=== PATIENT | male | born 1960 | race African-American/Black ===

== ENCOUNTER 2017-02-24 11:12 | Emergency (ER) | payer OTHER, MEDICAID ==
[~2017-02-24] VITALS: Ht 185.4 cm; Wt 99.8 kg
[2017-02-24 11:32] VITALS: BP 163/113
[2017-02-24] MEDS ORDERED: TETANUS-DIPTH-ACEL PERTUSSIS 0.5ML SYRG IM ONE (12:30)
[2017-02-24] MEDS ORDERED: cefTRIAXone SOD 1,000 MG VL IM ONE (12:30)
== END 2017-02-24 12:48 | disposition home or self-care (01) ==
LOC: ER 11:12
DX: L03.114 Cellulitis of left upper limb (principal); S50.862A Insect bite (nonvenomous) of left forearm, initial encounter; Z23 Encounter for immunization; W57.XXXA Bitten or stung by nonvenomous insect and other nonvenomous arthropods, initial encounter; Y93.89 Activity, other specified; Y99.8 Other external cause status; Y92.096 Garden or yard of other non-institutional residence as the place of occurrence of the external cause; Z95.1 Presence of aortocoronary bypass graft; Z21 Asymptomatic human immunodeficiency virus [HIV] infection status
CPT/HCPCS: 90471; 90715; 96372; 99284; J0696

== ENCOUNTER 2017-02-26 06:15 | Emergency (ER) | payer OTHER, MEDICAID ==
[~2017-02-26] VITALS: Ht 160 cm; Wt 99.8 kg
[2017-02-26 07:00] VITALS: BP 148/102
== END 2017-02-26 07:19 | disposition left against medical advice (07) ==
LOC: ER 06:29
DX: S40.862A Insect bite (nonvenomous) of left upper arm, initial encounter (principal); Z53.21 Procedure and treatment not carried out due to patient leaving prior to being seen by health care provider; W57.XXXA Bitten or stung by nonvenomous insect and other nonvenomous arthropods, initial encounter; Y93.89 Activity, other specified; Y99.8 Other external cause status; Y92.89 Other specified places as the place of occurrence of the external cause

== ENCOUNTER → 2020-07-23 | Day surgery (SDC) | payer OTHER, MEDICAID ==
[2020-07-17 12:33] LABS: Basophils # (auto) 0.1 10 ^3/uL (0-0.2); Eosinophils # (auto) 0.1 10 ^3/uL (0-0.8); Red Blood Cells 3.81 10^6/uL (4.5-5.90)
[2020-07-17 12:35] LABS: Eosinophils % (auto) 1.4 % (0.0-7.0); Hematocrit 37.7 % (41.0-53.0); Hemoglobin 13.4 g/dL (13.5-17.5); Lymphocytes % (auto) 36.8 % (10.0-50.0); Mean Corpuscular Hemoglobin 35.1 pg (28.0-32.0); Mean Corpuscular Hgb Conc. 35.4 g/dL (32.0-36.0); Mean Corpuscular Volume 99.1 fL (80.0-100.0); Monocytes # (auto) 0.8 10 ^3/uL (0-1.3); Monocytes % (auto) 7.3 % (0.0-12.0); Neutrophils # (auto) 5.8 10 ^3/uL (1.6-8.6); Neutrophils % (auto) 53.5 % (37.0-80.0); Red Cell Distribution Width 13.2 % (11.8-14.3); White Blood Cell 10.9 10^3/uL (4.4-10.8)
[2020-07-17 12:48] LABS: Platelet Count (auto) 122 10^3/uL (140-450)
[2020-07-17 12:50] LABS: INR 1.05 (0.9-1.15); Partial Thromboplastin Time 28.3 sec (23.0-31.2)
[2020-07-17 13:08] LABS: Albumin 3.5 g/dL (3.4-5.0); Potassium 3.6 mmol/L (3.5-5.1)
[2020-07-17 13:12] LABS: BUN/Creatinine Ratio 9.2; Bilirubin, Total 0.2 mg/dL (0.2-1.0); Total Protein 7.8 g/dL (6.4-8.2)
[2020-07-18 10:52] LABS: Urine Bacteria NONE SEEN /hpf (None Seen); Urine Blood Negative /uL (Negative); Urine Mucus FEW (None Seen); Urine Specific Gravity 1.011 (1.001-1.035); Urine WBC <1 /hpf (0 - 3)
[~2020-07-23] VITALS: Ht 182.9 cm; Wt 104.3 kg
[~2020-07-23] MED LIST: ABAC1TAB3 PO; ATOR10TA52 PO; BACL10TA PO; BUME1TAB3 PO; CALC-317 PO; CHLO25TA22 PO; CIPROFLOXACIN 400MG/200ML 200 ML IV ONE; DEXL60CA4 PO; DIPH25CA46 PO; DOCU100T15 PO; FERR-20 PO; FOLI1TAB6 PO; GABA300C10 PO; GENTAMICIN SULF 80 MG/2 ML VIAL ONE; HYDROmorphone HCL 2 MG/ML VL IV PRN; LIDOCAINE 1% HCL (LOCAL ANESTH.) INJ 20ML MDV ONE; METO25TA93 PO; MIDAZOLAM HCL 1MG/1ML-2 ML VIAL ONE; MORPHINE SULFATE 4 MG/ML SYR/VIAL IV PRN; NALO1TAB2 PO; NIFE1TAB31 PO; ONDANSETRON HCL 4 MG/2 ML VIAL IV PRN; ONDANSETRON HCL 4 MG/2 ML VIAL ONE; PROPOFOL 10 MG/ML 20 ML IV ONE; SODIUM CHLORIDE LOCK 10 ML ONE; SPIR25TA8 PO; TELM80TA PO; fentaNYL CITRATE 100 MCG/2 ML VL ONE
[2020-07-23 09:10] VITALS: BP 98/65
== END | disposition home or self-care (01) ==
LOC: SUR 06:09
PROVIDERS: ATTEND Urology
DX: R97.20 Elevated prostate specific antigen [PSA] (principal); C61 Malignant neoplasm of prostate; N40.1 Benign prostatic hyperplasia with lower urinary tract symptoms; K44.9 Diaphragmatic hernia without obstruction or gangrene; K21.9 Gastro-esophageal reflux disease without esophagitis; E11.40 Type 2 diabetes mellitus with diabetic neuropathy, unspecified; E11.22 Type 2 diabetes mellitus with diabetic chronic kidney disease; I13.0 Hypertensive heart and chronic kidney disease with heart failure and stage 1 through stage 4 chronic kidney disease, or unspecified chronic kidney disease; N18.30 Chronic kidney disease, stage 3 unspecified; G89.29 Other chronic pain; F17.200 Nicotine dependence, unspecified, uncomplicated; J44.9 Chronic obstructive pulmonary disease, unspecified; Z20.828 Contact with and (suspected) exposure to other viral communicable diseases; Z98.890 Other specified postprocedural states; Z21 Asymptomatic human immunodeficiency virus [HIV] infection status; Z91.041 Radiographic dye allergy status; Z86.73 Personal history of transient ischemic attack (TIA), and cerebral infarction without residual deficits
CPT/HCPCS: 36415; 52000; 55700; 76872; 80053; 81001; 85025; 85610; 85730; 88305; J0744; J1580; J2001; J2250; J2405; J2704; J3010; U0003

== ENCOUNTER 2022-10-31 14:13 | Emergency (ER) | payer OTHER, MEDICAID ==
[~2022-10-31] VITALS: Ht 185.4 cm; Wt 104.3 kg
[~2022-10-31 14:13] MED LIST changes: +CHLO25TA2 PO; -CHLO25TA22 PO; -CIPROFLOXACIN 400MG/200ML 200 ML IV ONE; +DIPH-599 PO; -DIPH25CA46 PO; -GENTAMICIN SULF 80 MG/2 ML VIAL ONE; -HYDROmorphone HCL 2 MG/ML VL IV PRN; -LIDOCAINE 1% HCL (LOCAL ANESTH.) INJ 20ML MDV ONE; -MIDAZOLAM HCL 1MG/1ML-2 ML VIAL ONE; -MORPHINE SULFATE 4 MG/ML SYR/VIAL IV PRN; -NALO1TAB2 PO; +NALO1TAB4 PO; -ONDANSETRON HCL 4 MG/2 ML VIAL IV PRN; -ONDANSETRON HCL 4 MG/2 ML VIAL ONE; -PROPOFOL 10 MG/ML 20 ML IV ONE; -SODIUM CHLORIDE LOCK 10 ML ONE; -fentaNYL CITRATE 100 MCG/2 ML VL ONE
[2022-10-31 14:20] VITALS: BP 140/98
[2022-10-31] MEDS ORDERED: ASPirin 325 MG TAB PO ONE (14:30)
[2022-10-31 14:45] LABS: Basophils # (auto) 0.1 10 ^3/uL (0-0.2); Basophils % (auto) 1.2 % (0.0-2.0); Eosinophils # (auto) 0.2 10 ^3/uL (0-0.8); Eosinophils % (auto) 2.3 % (0.0-7.0); Hematocrit 39.1 % (41.0-53.0); Hemoglobin 13.8 g/dL (13.5-17.5); Lymphocytes # (auto) 1.5 10 ^3/uL (0.4-5.4); Lymphocytes % (auto) 16.6 % (10.0-50.0); Mean Corpuscular Hemoglobin 33.8 pg (28.0-32.0); Mean Corpuscular Hgb Conc. 35.4 g/dL (32.0-36.0); Mean Corpuscular Volume 95.5 fL (80.0-100.0); Monocytes # (auto) 0.9 10 ^3/uL (0-1.3); Monocytes % (auto) 9.9 % (0.0-12.0); Neutrophils # (auto) 6.4 10 ^3/uL (1.6-8.6); Red Blood Cells 4.09 10^6/uL (4.5-5.90); White Blood Cell 9.2 10^3/uL (4.4-10.8)
[2022-10-31 15:04] LABS: Albumin 3.6 g/dL (3.4-5.0); Calcium 9.2 mg/dL (8.5-10.1); Potassium 3.2 mmol/L (3.5-5.1)
[2022-10-31 15:06] LABS: BUN/Creatinine Ratio 7.8
[2022-10-31 15:09] LABS: Bilirubin, Total 0.4 mg/dL (0.2-1.0); Total Protein 7.2 g/dL (6.4-8.2)
[2022-10-31 16:00] LABS: Urine WBC None Seen /hpf (0 - 3)
[2022-10-31 16:16] LABS: Urine Bacteria NONE SEEN /hpf (None Seen); Urine Blood TRACE /uL (Negative); Urine Specific Gravity 1.007 (1.001-1.035)
[2022-11-01] MEDS ORDERED: METO-289 PO (18:46)
== END 2022-10-31 17:20 | disposition left against medical advice (07) ==
LOC: ER 14:13
DX: I24.9 Acute ischemic heart disease, unspecified (principal)
CPT/HCPCS: 36415; 71045; 80053; 81001; 84484; 85025; 93005

== ENCOUNTER 2022-11-01 13:45 | Inpatient (IN) | payer OTHER, MEDICAID ==
[~2022-11-01] VITALS: Ht 185.4 cm; Wt 111.3 kg
[2022-11-01 14:39] LABS: Basophils # (auto) 0.1 10 ^3/uL (0-0.2); Basophils % (auto) 0.7 % (0.0-2.0); Eosinophils # (auto) 0.4 10 ^3/uL (0-0.8); Eosinophils % (auto) 4.2 % (0.0-7.0); Hematocrit 40.7 % (41.0-53.0); Hemoglobin 14.1 g/dL (13.5-17.5); Lymphocytes # (auto) 1.2 10 ^3/uL (0.4-5.4); Lymphocytes % (auto) 13.5 % (10.0-50.0); Mean Corpuscular Hemoglobin 32.9 pg (28.0-32.0); Mean Corpuscular Hgb Conc. 34.7 g/dL (32.0-36.0); Mean Corpuscular Volume 94.8 fL (80.0-100.0); Monocytes # (auto) 0.9 10 ^3/uL (0-1.3); Monocytes % (auto) 9.4 % (0.0-12.0); Neutrophils # (auto) 6.5 10 ^3/uL (1.6-8.6); Neutrophils % (auto) 72.2 % (37.0-80.0); Nucleated Red Blood Cells % 0.2 %; Red Blood Cells 4.29 10^6/uL (4.5-5.90); Red Cell Distribution Width 14.4 % (11.8-14.3)
[2022-11-01 14:42] LABS: Albumin 3.9 g/dL (3.4-5.0); Calcium 9.1 mg/dL (8.5-10.1); Potassium 3.4 mmol/L (3.5-5.1)
[2022-11-01 14:46] LABS: BUN/Creatinine Ratio 6.9; Bilirubin, Total 0.5 mg/dL (0.2-1.0); Total Protein 7.7 g/dL (6.4-8.2)
[2022-11-01] MEDS ORDERED: FUROSEMIDE 40 MG/4 ML VIAL IV ONE (17:00)
[2022-11-01] MEDS ORDERED: ONDANSETRON HCL 4 MG/2 ML VIAL IV PRN (18:30)
[2022-11-01] MEDS ORDERED: MORPHINE SULFATE INJ 2 MG/ml SYRG IV PRN (18:30)
[2022-11-01] MEDS ORDERED: NITROGLYCERIN 0.4 MG SL TAB SL PRN (18:30)
[2022-11-01] MEDS ORDERED: ACETAMINOPHEN 325 MG TAB PO PRN (18:30)
[2022-11-01] MEDS ORDERED: METO-289 PO (18:46)
[2022-11-01 19:00] VITALS: BP 140/102
[2022-11-01] MEDS ORDERED: POTASSIUM CHL 20 Meq TABLET PO ONE (19:30)
[2022-11-01] MEDS: SODIUM CHLOR 0.9% PF (SALINE LOCK) 10ML VIAL/SYR IV SCH (22:00)
[2022-11-01] MEDS ORDERED: PATIENTS OWN MEDICATION (Docusate Sodium 100 MG) PO SCH (22:00)
[2022-11-01] MEDS: GABAPENTIN 300 MG CAP PO SCH (23:12)
[2022-11-02] MEDS ORDERED: hydrALAZINE HCL 20 MG/ML VL IV ONE (01:30)
[2022-11-02] MEDS: IPRATROPIUM BROM 0.5 MG/2.5ML INH SOL NEB PRN ×2 (02:08→22:24)
[2022-11-02] MEDS: ALBUTEROL MEDNEB 2.5 mg/3ml NEB NEB PRN ×2 (02:08→22:24)
[2022-11-02 05:18] LABS: Basophils # (auto) 0.1 10 ^3/uL (0-0.2); Basophils % (auto) 1.2 % (0.0-2.0); Eosinophils # (auto) 0.3 10 ^3/uL (0-0.8); Eosinophils % (auto) 2.7 % (0.0-7.0); Hematocrit 40.2 % (41.0-53.0); Hemoglobin 14.1 g/dL (13.5-17.5); Lymphocytes # (auto) 1.3 10 ^3/uL (0.4-5.4); Lymphocytes % (auto) 13.6 % (10.0-50.0); Mean Corpuscular Hemoglobin 33.5 pg (28.0-32.0); Mean Corpuscular Hgb Conc. 35.1 g/dL (32.0-36.0); Mean Corpuscular Volume 95.6 fL (80.0-100.0); Monocytes # (auto) 1.2 10 ^3/uL (0-1.3); Monocytes % (auto) 12.1 % (0.0-12.0); Neutrophils # (auto) 6.8 10 ^3/uL (1.6-8.6); Neutrophils % (auto) 70.4 % (37.0-80.0); Nucleated Red Blood Cells % 0.1 %; Red Blood Cells 4.21 10^6/uL (4.5-5.90); Red Cell Distribution Width 14.2 % (11.8-14.3); White Blood Cell 9.6 10^3/uL (4.4-10.8)
[2022-11-02 05:39] LABS: Calcium 9.3 mg/dL (8.5-10.1); Potassium 3.9 mmol/L (3.5-5.1)
[2022-11-02] MEDS: GABAPENTIN 300 MG CAP PO SCH ×3 (05:41→21:37)
[2022-11-02] MEDS: SODIUM CHLOR 0.9% PF (SALINE LOCK) 10ML VIAL/SYR IV SCH ×3 (05:41→21:37)
[2022-11-02 05:46] LABS: BUN/Creatinine Ratio 9.4; Total Protein 7.9 g/dL (6.4-8.2)
[2022-11-02] MEDS: FERROUS SULFATE 325mg EC TAB PO SCH ×3 (08:55→19:02)
[2022-11-02] MEDS: Chlorthalidone 25 MG PO SCH (09:35)
[2022-11-02] MEDS: ABACAVIR DOLUTEGRAVIR LAMIVUDI PO SCH (09:35)
[2022-11-02] MEDS: AZITHROMYCIN 500MG/ 250ML 250 ML IV SCH (09:35)
[2022-11-02] MEDS: LOSARTAN POTASSIUM 50 MG TAB PO SCH (09:38)
[2022-11-02] MEDS: ATORVASTATIN 20 MG TAB PO SCH (09:39)
[2022-11-02] MEDS: BUMETANIDE 1 MG TAB PO SCH (09:39)
[2022-11-02] MEDS: METOPROLOL SUCCINATE XL 50 MG TAB PO SCH (09:39)
[2022-11-02] MEDS ORDERED: PANTOPRAZOLE 40 MG/10 ML VIAL INJ IV SCH (10:00)
[2022-11-02 10:46] LABS: Urine Bacteria NONE SEEN /hpf (None Seen); Urine Blood 2+ /uL (Negative); Urine Mucus MODERATE (None Seen); Urine Specific Gravity 1.035 (1.001-1.035); Urine WBC 1 /hpf (0 - 3)
[2022-11-02 13:21] VITALS: BP 115/81
[2022-11-02 14:49] LABS: INR 1.04 (0.9-1.15); Partial Thromboplastin Time 34.2 sec (24.6-33.4)
[2022-11-02] MEDS ORDERED: cefTRIAXone 1GM/50ML D5W 50 ML IV ONE (17:45)
[2022-11-02] MEDS ORDERED: IOHEXOL 350 MG/ML 100ML IJ ONE (18:03)
[2022-11-02] MEDS: DOCUSATE SOD 100 MG CAP PO PRN (21:37)
[2022-11-02] MEDS: HYDROcodone-ACET 5/325MG TAB PO PRN (21:38)
[2022-11-02 22:00] VITALS: BP_SYST 132; BP_DIAS 132; BP_DIAS 84
[2022-11-03] MEDS: SODIUM CHLOR 0.9% PF (SALINE LOCK) 10ML VIAL/SYR IV SCH ×3 (04:57→22:00)
[2022-11-03] MEDS: GABAPENTIN 300 MG CAP PO SCH ×3 (04:57→21:33)
[2022-11-03 05:00] VITALS: BP 112/72
[2022-11-03] MEDS: HYDROcodone-ACET 5/325MG TAB PO PRN ×2 (05:01→21:33)
[2022-11-03] MEDS: FERROUS SULFATE 325mg EC TAB PO SCH ×3 (08:43→18:00)
[2022-11-03] MEDS: cefTRIAXone 1GM/50ML D5W 50 ML IV SCH (08:44)
[2022-11-03 09:26] VITALS: BP 102/62
[2022-11-03] MEDS: ABACAVIR DOLUTEGRAVIR LAMIVUDI PO SCH (10:00)
[2022-11-03] MEDS: Chlorthalidone 25 MG PO SCH (10:00)
[2022-11-03] MEDS ORDERED: predniSONE 20 MG TAB PO ONE ×3 (10:15→22:15)
[2022-11-03] MEDS: ATORVASTATIN 20 MG TAB PO SCH (11:46)
[2022-11-03] MEDS: BUMETANIDE 1 MG TAB PO SCH (11:46)
[2022-11-03] MEDS: METOPROLOL SUCCINATE XL 50 MG TAB PO SCH (11:47)
[2022-11-03] MEDS: LOSARTAN POTASSIUM 50 MG TAB PO SCH (11:47)
[2022-11-03] MEDS: AZITHROMYCIN 500MG/ 250ML 250 ML IV SCH (11:49)
[2022-11-03 13:00] VITALS: BP 133/77
[2022-11-03 16:37] VITALS: BP 117/85
[2022-11-03 20:00] VITALS: BP 118/70
[2022-11-03 22:00] VITALS: BP 118/70
[2022-11-03] MEDS ORDERED: diphenhdrAMINE HCL 25 MG CAP PO ONE (22:15)
[2022-11-04 05:00] VITALS: BP 127/79
[2022-11-04] MEDS: GABAPENTIN 300 MG CAP PO SCH ×3 (05:08→21:30)
[2022-11-04] MEDS: SODIUM CHLOR 0.9% PF (SALINE LOCK) 10ML VIAL/SYR IV SCH ×3 (05:09→21:30)
[2022-11-04 08:30] VITALS: BP 129/90
[2022-11-04] MEDS: METOPROLOL SUCCINATE XL 50 MG TAB PO SCH (10:10)
[2022-11-04] MEDS: AZITHROMYCIN 250 MG TAB PO SCH (10:10)
[2022-11-04] MEDS: LOSARTAN POTASSIUM 50 MG TAB PO SCH (10:11)
[2022-11-04] MEDS: BUMETANIDE 1 MG TAB PO SCH (10:12)
[2022-11-04] MEDS: FERROUS SULFATE 325mg EC TAB PO SCH ×3 (10:12→17:29)
[2022-11-04] MEDS: cefTRIAXone 1GM/50ML D5W 50 ML IV SCH (10:13)
[2022-11-04] MEDS: ATORVASTATIN 20 MG TAB PO SCH (10:13)
[2022-11-04] MEDS: Chlorthalidone 25 MG PO SCH (11:03)
[2022-11-04] MEDS: ABACAVIR DOLUTEGRAVIR LAMIVUDI PO SCH (11:03)
[2022-11-04] MEDS ORDERED: IOHEXOL 350 MG/ML 100ML IJ ONE (11:55)
[2022-11-04 12:30] VITALS: BP 126/79
[2022-11-04] MEDS: DOCUSATE SOD 100 MG CAP PO PRN (15:07)
[2022-11-04] MEDS: POLYETHYLENE GLYCOL 17 GM PWDR PO SCH ×2 (17:28→21:30)
[2022-11-04] MEDS: IPRATROPIUM BROM 0.5 MG/2.5ML INH SOL NEB PRN ×2 (18:38→21:37)
[2022-11-04] MEDS: ALBUTEROL MEDNEB 2.5 mg/3ml NEB NEB PRN ×2 (18:38→21:37)
[2022-11-04] MEDS: DOCUSATE SOD 100 MG CAP PO SCH (21:30)
[2022-11-04 22:00] VITALS: BP 118/80
[2022-11-05 00:12] VITALS: BP 118/80
[2022-11-05 05:00] VITALS: BP 118/72
[2022-11-05] MEDS: SODIUM CHLOR 0.9% PF (SALINE LOCK) 10ML VIAL/SYR IV SCH ×3 (06:00→21:39)
[2022-11-05] MEDS ORDERED: ALBUTEROL MEDNEB 2.5 mg/3ml NEB ONE ×5 (06:06→21:28)
[2022-11-05] MEDS: GABAPENTIN 300 MG CAP PO SCH ×3 (06:14→21:38)
[2022-11-05] MEDS: IPRATROPIUM BROM 0.5 MG/2.5ML INH SOL NEB SCH ×5 (06:55→21:33)
[2022-11-05] MEDS: ALBUTEROL SULF 2.5 MG/0.5ML(0.5%) NEB SOLN NEB SCH ×5 (06:55→21:33)
[2022-11-05 09:00] VITALS: BP 117/79
[2022-11-05] MEDS: POLYETHYLENE GLYCOL 17 GM PWDR PO SCH ×2 (09:30→21:39)
[2022-11-05] MEDS: cefTRIAXone 1GM/50ML D5W 50 ML IV SCH (09:30)
[2022-11-05] MEDS: AZITHROMYCIN 250 MG TAB PO SCH ×2 (09:30→12:11)
[2022-11-05] MEDS: DOCUSATE SOD 100 MG CAP PO SCH ×2 (09:31→21:38)
[2022-11-05] MEDS: LOSARTAN POTASSIUM 50 MG TAB PO SCH (09:31)
[2022-11-05] MEDS: ATORVASTATIN 20 MG TAB PO SCH (09:32)
[2022-11-05] MEDS: FERROUS SULFATE 325mg EC TAB PO SCH ×3 (09:32→18:16)
[2022-11-05] MEDS: METOPROLOL SUCCINATE XL 50 MG TAB PO SCH (09:32)
[2022-11-05] MEDS: BUMETANIDE 1 MG TAB PO SCH (09:32)
[2022-11-05] MEDS: Chlorthalidone 25 MG PO SCH (10:00)
[2022-11-05 13:00] VITALS: BP 111/69
[2022-11-05 13:36] LABS: Basophils # (auto) 0.1 10 ^3/uL (0-0.2); Basophils % (auto) 0.7 % (0.0-2.0); Eosinophils # (auto) 0.1 10 ^3/uL (0-0.8); Eosinophils % (auto) 0.8 % (0.0-7.0); Hematocrit 40.2 % (41.0-53.0); Hemoglobin 13.9 g/dL (13.5-17.5); Lymphocytes # (auto) 2.7 10 ^3/uL (0.4-5.4); Lymphocytes % (auto) 24.8 % (10.0-50.0); Mean Corpuscular Hemoglobin 33.1 pg (28.0-32.0); Mean Corpuscular Hgb Conc. 34.5 g/dL (32.0-36.0); Mean Corpuscular Volume 95.9 fL (80.0-100.0); Monocytes % (auto) 9.5 % (0.0-12.0); Neutrophils # (auto) 7.1 10 ^3/uL (1.6-8.6); Neutrophils % (auto) 64.2 % (37.0-80.0); Red Blood Cells 4.19 10^6/uL (4.5-5.90); Red Cell Distribution Width 13.8 % (11.8-14.3)
[2022-11-05 13:41] LABS: Albumin 3.6 g/dL (3.4-5.0); Calcium 9.3 mg/dL (8.5-10.1); Potassium 3.2 mmol/L (3.5-5.1)
[2022-11-05 13:44] LABS: BUN/Creatinine Ratio 18.9; Bilirubin, Total 0.3 mg/dL (0.2-1.0); Total Protein 8.2 g/dL (6.4-8.2)
[2022-11-05] MEDS ORDERED: POTASSIUM CHL 20MEQ/100ML 100 ML IV ONE ×2 (14:45→19:00)
[2022-11-05 17:00] VITALS: BP 112/76
[2022-11-05] MEDS: ABACAVIR DOLUTEGRAVIR LAMIVUDI PO SCH (18:19)
[2022-11-05 22:00] VITALS: BP 114/59
[2022-11-06] MEDS ORDERED: ALBUTEROL MEDNEB 2.5 mg/3ml NEB ONE ×5 (01:55→21:48)
[2022-11-06] MEDS: IPRATROPIUM BROM 0.5 MG/2.5ML INH SOL NEB SCH ×6 (02:01→22:00)
[2022-11-06] MEDS: ALBUTEROL SULF 2.5 MG/0.5ML(0.5%) NEB SOLN NEB SCH ×6 (02:01→22:00)
[2022-11-06 05:00] VITALS: BP 123/77
[2022-11-06] MEDS: FLUCONAZOLE 200MG/100ML 100 ML IV SCH ×3 (05:03→13:54)
[2022-11-06] MEDS: SODIUM CHLOR 0.9% PF (SALINE LOCK) 10ML VIAL/SYR IV SCH ×3 (06:00→21:14)
[2022-11-06] MEDS ORDERED: FLUCONAZOLE 200MG/100ML 100 ML IV ONE (06:30)
[2022-11-06] MEDS: GABAPENTIN 300 MG CAP PO SCH ×3 (06:46→21:13)
[2022-11-06 07:56] LABS: Basophils # (auto) 0.1 10 ^3/uL (0-0.2); Basophils % (auto) 0.9 % (0.0-2.0); Eosinophils # (auto) 0.1 10 ^3/uL (0-0.8); Eosinophils % (auto) 1.2 % (0.0-7.0); Hematocrit 36.1 % (41.0-53.0); Hemoglobin 12.7 g/dL (13.5-17.5); Lymphocytes # (auto) 2.2 10 ^3/uL (0.4-5.4); Lymphocytes % (auto) 30.6 % (10.0-50.0); Mean Corpuscular Hemoglobin 33.6 pg (28.0-32.0); Mean Corpuscular Hgb Conc. 35.2 g/dL (32.0-36.0); Mean Corpuscular Volume 95.6 fL (80.0-100.0); Monocytes % (auto) 13.4 % (0.0-12.0); Neutrophils % (auto) 53.9 % (37.0-80.0); Nucleated Red Blood Cells % 0.1 %; Red Blood Cells 3.77 10^6/uL (4.5-5.90); Red Cell Distribution Width 13.9 % (11.8-14.3); White Blood Cell 7.3 10^3/uL (4.4-10.8)
[2022-11-06] MEDS: FERROUS SULFATE 325mg EC TAB PO SCH ×3 (08:35→18:15)
[2022-11-06 08:46] LABS: Albumin 3.1 g/dL (3.4-5.0); Calcium 8.7 mg/dL (8.5-10.1); Potassium 3.7 mmol/L (3.5-5.1)
[2022-11-06 08:49] LABS: BUN/Creatinine Ratio 14.5; Bilirubin, Total 0.3 mg/dL (0.2-1.0); Total Protein 6.5 g/dL (6.4-8.2)
[2022-11-06 09:00] VITALS: BP 122/88
[2022-11-06] MEDS: DOCUSATE SOD 100 MG CAP PO SCH ×2 (10:44→21:13)
[2022-11-06] MEDS: BUMETANIDE 1 MG TAB PO SCH (10:44)
[2022-11-06] MEDS: cefTRIAXone 1GM/50ML D5W 50 ML IV SCH (10:44)
[2022-11-06] MEDS: DOXYCYCLINE 100 MG TAB/CAP PO SCH ×2 (10:45→21:13)
[2022-11-06] MEDS: POLYETHYLENE GLYCOL 17 GM PWDR PO SCH ×2 (10:45→21:13)
[2022-11-06] MEDS: ATORVASTATIN 20 MG TAB PO SCH (10:45)
[2022-11-06] MEDS: METOPROLOL SUCCINATE XL 50 MG TAB PO SCH (10:45)
[2022-11-06] MEDS: LOSARTAN POTASSIUM 50 MG TAB PO SCH (10:45)
[2022-11-06] MEDS: Chlorthalidone 25 MG PO SCH (10:47)
[2022-11-06 13:00] VITALS: BP 117/79
[2022-11-06 17:00] VITALS: BP 132/86
[2022-11-06] MEDS: ABACAVIR DOLUTEGRAVIR LAMIVUDI PO SCH (18:14)
[2022-11-06 22:00] VITALS: BP 134/80
[2022-11-07] MEDS ORDERED: ALBUTEROL MEDNEB 2.5 mg/3ml NEB ONE ×3 (01:06→10:11)
[2022-11-07] MEDS: IPRATROPIUM BROM 0.5 MG/2.5ML INH SOL NEB SCH ×4 (01:26→14:40)
[2022-11-07] MEDS: ALBUTEROL SULF 2.5 MG/0.5ML(0.5%) NEB SOLN NEB SCH ×4 (01:26→14:41)
[2022-11-07 05:00] VITALS: BP 141/95
[2022-11-07] MEDS: GABAPENTIN 300 MG CAP PO SCH ×2 (05:13→15:00)
[2022-11-07] MEDS: SODIUM CHLOR 0.9% PF (SALINE LOCK) 10ML VIAL/SYR IV SCH ×2 (05:14→14:58)
[2022-11-07 06:13] LABS: Basophils # (auto) 0.1 10 ^3/uL (0-0.2); Basophils % (auto) 0.8 % (0.0-2.0); Eosinophils # (auto) 0.2 10 ^3/uL (0-0.8); Eosinophils % (auto) 1.9 % (0.0-7.0); Hematocrit 35.4 % (41.0-53.0); Hemoglobin 12.3 g/dL (13.5-17.5); Lymphocytes # (auto) 2.2 10 ^3/uL (0.4-5.4); Lymphocytes % (auto) 27.2 % (10.0-50.0); Mean Corpuscular Hemoglobin 33.3 pg (28.0-32.0); Mean Corpuscular Hgb Conc. 34.9 g/dL (32.0-36.0); Mean Corpuscular Volume 95.5 fL (80.0-100.0); Monocytes # (auto) 0.9 10 ^3/uL (0-1.3); Monocytes % (auto) 10.7 % (0.0-12.0); Neutrophils # (auto) 4.8 10 ^3/uL (1.6-8.6); Neutrophils % (auto) 59.4 % (37.0-80.0); Nucleated Red Blood Cells % 0.1 %; Red Blood Cells 3.71 10^6/uL (4.5-5.90); Red Cell Distribution Width 13.8 % (11.8-14.3); White Blood Cell 8.1 10^3/uL (4.4-10.8)
[2022-11-07 06:19] LABS: Potassium 3.7 mmol/L (3.5-5.1)
[2022-11-07 06:32] LABS: Albumin 3.2 g/dL (3.4-5.0); BUN/Creatinine Ratio 13.7; Bilirubin, Total 0.3 mg/dL (0.2-1.0); Total Protein 6.6 g/dL (6.4-8.2)
[2022-11-07 09:07] VITALS: BP 150/81
[2022-11-07] MEDS: LOSARTAN POTASSIUM 50 MG TAB PO SCH (09:13)
[2022-11-07] MEDS ORDERED: POTASSIUM CHL 20 Meq TABLET PO ONE (09:15)
[2022-11-07] MEDS: DOXYCYCLINE 100 MG TAB/CAP PO SCH (09:16)
[2022-11-07] MEDS: BUMETANIDE 1 MG TAB PO SCH (09:16)
[2022-11-07] MEDS: DOCUSATE SOD 100 MG CAP PO SCH (09:16)
[2022-11-07] MEDS: ATORVASTATIN 20 MG TAB PO SCH (09:20)
[2022-11-07] MEDS: METOPROLOL SUCCINATE XL 50 MG TAB PO SCH (09:20)
[2022-11-07] MEDS: cefTRIAXone 1GM/50ML D5W 50 ML IV SCH (09:21)
[2022-11-07] MEDS: POLYETHYLENE GLYCOL 17 GM PWDR PO SCH (09:21)
[2022-11-07] MEDS: FLUCONAZOLE 200MG/100ML 100 ML IV SCH ×2 (09:21→11:47)
[2022-11-07] MEDS: FERROUS SULFATE 325mg EC TAB PO SCH ×2 (09:21→13:02)
[2022-11-07] MEDS: Chlorthalidone 25 MG PO SCH (10:00)
[2022-11-07] MEDS ORDERED: NICOTINE 14 MG/24HR TOPICAL PATCH TD SCH (10:00)
[2022-11-07] MEDS ORDERED: TIOT17SP IN (10:47)
[2022-11-07] MEDS ORDERED: FLUC200T50 PO (10:47)
[2022-11-07 11:03] LABS: Magnesium 2.2 mg/dL (1.6-2.6)
[2022-11-07 13:00] VITALS: BP 146/80
[2022-11-07 14:48] VITALS: BP 146/80
== END 2022-11-07 16:00 | disposition home or self-care (01) | DRG 177 ==
LOC: ER 13:45 → TELE 18:46 → TELE-E-ADS 11-02 12:42 → TELE-EAST 11-02 18:12
PROVIDERS: ADMIT Nurse Practitioner Family; ATTEND Student in an Organized Health Care Education/Training Program
DX: J15.6 Pneumonia due to other Gram-negative bacteria (principal); I50.33 Acute on chronic diastolic (congestive) heart failure; J96.01 Acute respiratory failure with hypoxia; J44.0 Chronic obstructive pulmonary disease with (acute) lower respiratory infection; J44.1 Chronic obstructive pulmonary disease with (acute) exacerbation; N18.4 Chronic kidney disease, stage 4 (severe); I13.0 Hypertensive heart and chronic kidney disease with heart failure and stage 1 through stage 4 chronic kidney disease, or unspecified chronic kidney disease; J98.11 Atelectasis; E78.5 Hyperlipidemia, unspecified; E87.6 Hypokalemia; I49.3 Ventricular premature depolarization; K20.90 Esophagitis, unspecified without bleeding; F17.210 Nicotine dependence, cigarettes, uncomplicated; Z20.822 Contact with and (suspected) exposure to COVID-19; G62.9 Polyneuropathy, unspecified; G89.29 Other chronic pain; F12.90 Cannabis use, unspecified, uncomplicated; M54.50 Low back pain, unspecified; R00.2 Palpitations; R91.1 Solitary pulmonary nodule; D50.9 Iron deficiency anemia, unspecified; E66.01 Morbid (severe) obesity due to excess calories; Z91.041 Radiographic dye allergy status; Z79.899 Other long term (current) drug therapy; Z83.3 Family history of diabetes mellitus; Z85.46 Personal history of malignant neoplasm of prostate; Z86.73 Personal history of transient ischemic attack (TIA), and cerebral infarction without residual deficits; Z95.1 Presence of aortocoronary bypass graft; Z68.32 Body mass index [BMI] 32.0-32.9, adult; Z71.3 Dietary counseling and surveillance
CPT/HCPCS: 36415; 71046; 71275; 80053; 80061; 81001; 83036; 83735; 83880; 84443; 84484; 85025; 85379; 85610; 85730; 86360; 87040; 87070; 87077; 87205; 87426; 93005; 93306; 93970; 94640; C9113; G0378; J0696; J1450; J3480

== ENCOUNTER 2023-10-12 17:06 | Emergency (ER) | payer OTHER, MEDICAID ==
[~2023-10-12] VITALS: Ht 185.4 cm; Wt 109.0 kg
[~2023-10-12 17:06] MED LIST changes: -FERR-20 PO; +FERR325T24 PO; +FLUC200T50 PO; +FOLI-119 PO; -FOLI1TAB6 PO; +GABA-1250 PO; -GABA300C10 PO; +METO-289 PO; -METO25TA93 PO; +TIOT17SP IN
[2023-10-12] MEDS ORDERED: DICYCLOMINE HCL (10MG/ML) 2 ML AMPULE IM ONE (18:00)
[2023-10-12] MEDS ORDERED: ONDANSETRON ODT 4 MG TAB PO ONE (18:00)
[2023-10-12 18:19] LABS: Urine Bacteria FEW /hpf (None Seen); Urine Blood Negative /uL (Negative); Urine Clarity Clear (Clear); Urine Color Yellow (Yellow); Urine Mucus FEW (None Seen); Urine Protein, UAD 3+ (Negative); Urine Specific Gravity 1.032 (1.001-1.035); Urine WBC 13 /hpf (0 - 3); Urine pH 8.5 (5.0-8.0)
[2023-10-12 18:29] VITALS: BP 158/96; PULSE 70; RESP 18; TEMP 98.7; O2SAT 97
[2023-10-12 18:44] LABS: Chloride 105 mmol/L (98-107); Potassium 3.1 mmol/L (3.5-5.1); Sodium 140 mmol/L (136-145)
[2023-10-12 18:45] LABS: Anion Gap 7 (5-15); Calcium 9.7 mg/dL (8.7-10.4); Carbon Dioxide 28 mmol/L (20-30)
[2023-10-12 18:50] LABS: BUN/Creatinine Ratio 7.4 (10.0-20.0); Blood Urea Nitrogen 7 mg/dL (9-23); Glucose 107 mg/dL (74-106); Lipase 26 U/L (12-53)
[2023-10-12 18:55] LABS: Basophils # (auto) 0.1 10 ^3/uL (0-0.2); Eosinophils # (auto) 0.2 10 ^3/uL (0-0.8); Eosinophils % (auto) 2.4 % (0.0-7.0); Hematocrit 42.6 % (41.0-53.0); Hemoglobin 14.2 g/dL (13.5-17.5); Lymphocytes # (auto) 2.7 10 ^3/uL (0.4-5.4); Lymphocytes % (auto) 34.5 % (10.0-50.0); Mean Corpuscular Hemoglobin 31.8 pg (28.0-32.0); Mean Corpuscular Hgb Conc. 33.3 g/dL (32.0-36.0); Mean Corpuscular Volume 95.3 fL (80.0-100.0); Monocytes # (auto) 0.7 10 ^3/uL (0-1.3); Monocytes % (auto) 8.6 % (0.0-12.0); Neutrophils # (auto) 4.2 10 ^3/uL (1.6-8.6); Neutrophils % (auto) 53.5 % (37.0-80.0); Nucleated Red Blood Cells % 0.1 %; Red Blood Cells 4.47 10^6/uL (4.5-5.90); White Blood Cell 7.9 10^3/uL (4.4-10.8)
[2023-10-12] MEDS ORDERED: LEVO750T8 PO (20:14)
[2023-10-12] MEDS ORDERED: ZOFR4T PO (20:14)
[2023-10-12] MEDS ORDERED: ACET500T58 PO (20:14)
[2023-10-12] MEDS ORDERED: levoFLOXacin 250 MG TAB PO ONE (20:15)
== END 2023-10-12 20:53 | disposition home or self-care (01) ==
LOC: ER 17:06
DX: N39.0 Urinary tract infection, site not specified (principal); J44.9 Chronic obstructive pulmonary disease, unspecified; I10 Essential (primary) hypertension; F17.210 Nicotine dependence, cigarettes, uncomplicated; Z95.1 Presence of aortocoronary bypass graft; Z79.899 Other long term (current) drug therapy; Z88.8 Allergy status to other drugs, medicaments and biological substances
CPT/HCPCS: 36415; 80048; 81001; 83605; 83690; 84484; 85025; 96372; 99283; J0500; Q0162

== ENCOUNTER 2024-08-27 12:57 | Inpatient (IN) | payer OTHER, MEDICAID ==
[~2024-08-27] VITALS: Ht 185.4 cm; Wt 107.2 kg
[~2024-08-27 12:57] MED LIST changes: +ACET500T58 PO; -DIPH-599 PO; +DIPH-751 PO; +LEVO750T8 PO; +ZOFR4T PO
[2024-08-27] MEDS: ASPirin 81 mg TAB PO ONE (13:15)
--- NOTE | 2024-08-27 13:29 | ED.PDOC ---
SOB-HPI HPI Comments 63 year old male presents to the ED with chief complaint of SOB. Patient reports that he has been experiencing SOB for the past few days with associated chills and irregular heart beat. Patient relays that he had a recent visit with his Harm[employer] Maker Dr. Dalton, noting that he had an irregular heart rate and was given medication for it. Patient denies any chest pain, dizziness, headache, N/V/D, fever, or cough. Time Seen by MD: 13:26 Primary Care Provider: MAU Reviewed notes: Nurses Notes, Medications, Allergies Information Source: Patient, Spouse Mode of Arrival: Ambulatory Severity: Moderate Timing: Days Duration: Since onset Context: At Rest PE Risk Factors: None History of: COPD Prehospital treatment: None Modifying Factors: Nothing Associated Signs and Symptoms: None Past Medical History PAST MEDICAL HISTORY: Cancer, COPD, CVA, High Lipids, HTN Surgical History: CABG, Hernia Repair Surgical History (Other): Back and neck surgery Family History Family History: Unknown, Family hx of DM, Family hx of Cancer Social History Smoker: Cigarettes Alcohol: Occasionally Drugs: Marijuana Lives In: Home Constitutional: reports: chills; denies: diaphoresis, fatigue, fever, malaise, sweats, weakness, others EENTM: denies: blurred vision, double vision, ear bleeding, ear discharge, ear drainage, ear pain, ear ringing, eye pain, eye redness, hearing loss, mouth pain, mouth swelling, nasal discharge, nose bleeding, nose congestion, nose pain, photophobia, tearing, throat pain, throat swelling, voice changes, others Respiratory: reports: shortness of breath; denies: cough, hemoptysis, orthopnea, SOB at rest, SOB with excertion, stridor, wheezing, others Cardiovascular: reports: irregular heart beat; denies: chest pain, dizzy spells, diaphoresis, Dyspnea on exertion, edema, left arm pain, lightheadedness, palpitations, PND, syncope, others Gastrointestinal: denies: abdomen distended, abdominal pain, blood streaked bowels, constipated, diarrhea, dysphagia, difficulty swallowing, hematemesis, melena, nausea, poor appetite, poor fluid intake, rectal bleeding, rectal pain, vomiting, others Genitourinary: denies: burning, dysuria, flank pain, frequency, hematuria, incontinence, penile discharge, penile sore, pain, testicle pain, testicle swelling, urgency, others Neurological: denies: dizziness, fainting, headache, left sided numbness, left sided weakness, numbness, paresthesia, pre-existing deficit, right sided numbness, right sided weakness, seizure, speech problems, tingling, tremors, weakness, others Musculoskeletal: denies: back pain, gout, joint pain, joint swelling, muscle pain, muscle stiffness, neck pain, others Integumetry: denies: bruises, change in color, change in hair/nails, dryness, laceration, lesions, lumps, rash, wounds, others Allergic/Immunocompromised: denies: Difficulty Healing, Frequent Infections, Hives, Itching, others Hematologic/Lymphatic: denies: anemia, blood clots, easy bleeding, easy bruising, swollen glands, others Endocrine: denies: excessive hunger, excessive sweating, excessive thirst, excessive urination, flushing, intolerance to cold, intolerance to heat, unexplained weight gain, unexplained weight loss, others Psychiatric: denies: anxiety, bipolar disorder, depression, hopeless, panic disorder, schizophrenia, sleepless, suicidal, others All Other Systems: Reviewed and Negative Physical Exam General Appearance: Moderate Distress HEENT: Normal ENT Inspection, Pharynx Normal, TMs Normal Neck: Full Range of Motion, Non-Tender, Normal, Normal Inspection Respiratory: Chest Non-Tender, Lungs Clear, No Accessory Muscle Use, No Respiratory Distress, Normal Breath Sounds Cardiovascular: No Edema, No JVD, No Murmur, No Gallop, Tachycardia Breast Exam: Deferred Gastrointestinal: No Organomegaly, Non Tender, No Pulsatile Mass, Normal Bowel Sounds, Soft Genitalia: Deferred Pelvic: Deferred Rectal: Deferred Extremities: No calf tenderness, Normal capillary refill, Normal inspection, Normal range of motion, Non-tender, No pedal edema Musculoskeletal : Apperance: Normal Neurologic: Alert, orientation and mobility specialist II-XII nml as Tested, No Motor Deficits, Normal Affect, Normal Mood, No Sensory Deficits Cerebellar Function: Normal Reflexes: Normal Skin: Dry, Normal Color, Warm Lymphatic: No Adenopathy EKG EKG : Pulse Rate (adult): 120 [place]: Normal Cardiac Rhythm: ST Block: None Hypertrophy: LVH ST: Normal Was a procedure done? Was a procedure done?: No Differential Dx Differential Diagnosis: Anxiety, Asthma, Bronchitis, Cardiogenic Shock, CHF, COPD X-Ray, Labs, Meds, VS Vital Signs Date Time Temp Pulse Resp B/P (MAP) Pulse Ox O2 Delivery O2 Flow Rate FiO2 08/27/24 13:29 120 08/27/24 13:24 120 08/27/24 13:14 99.2 119 20 127/79 (95) 95 Lab Test 08/27/24 14:26 Range/Units White Blood Count 7.5 4.4-10.8 10^3/uL Red Blood Count 4.33 L 4.5-5.90 10^6/uL Hemoglobin 13.8 13.5-17.5 g/dL Hematocrit 40.9 L 41.0-53.0 % Mean Corpuscular Volume 94.6 80.0-100.0 fL Mean Corpuscular Hemoglobin 31.9 28.0-32.0 pg Mean Corpuscular Hemoglobin Concent 33.7 32.0-36.0 g/dL Red Cell Distribution Width 14.4 H 11.8-14.3 % Platelet Count 146 140-450 10^3/uL Mean Platelet Volume 11.6 H 6.9-10.8 fL Neutrophils (%) (Auto) 78.5 37.0-80.0 % Lymphocytes (%) (Auto) 6.5 L 10.0-50.0 % Monocytes (%) (Auto) 13.1 H 0.0-12.0 % Eosinophils (%) (Auto) 0.9 0.0-7.0 % Basophils (%) (Auto) 1.0 0.0-2.0 % Neutrophils # (Auto) 5.9 1.6-8.6 10 ^3/uL Lymphocytes # (Auto) 0.5 0.4-5.4 10 ^3/uL Monocytes # (Auto) 1.0 0-1.3 10 ^3/uL Eosinophils # (Auto) 0.1 0-0.8 10 ^3/uL Basophils # (Auto) 0.1 0-0.2 10 ^3/uL Nucleated Red Blood Cells 0.2 % Sodium Level Pending Potassium Level Pending Chloride Level Pending Carbon Dioxide Level Pending Anion Gap Pending Blood Urea Nitrogen Pending Creatinine Pending Glomerular Filtration Rate Calc Pending BUN/Creatinine Ratio Pending Serum Glucose Pending Calcium Level Pending Magnesium Level Pending Troponin I High Sensitivity Pending B-Type Natriuretic Peptide Pending Chest XR indicates: No acute cardiopulmonary disease. The CBC is within normal limits The patient was being admitted to the hospitalist The patient is being given aspirin The patient's diagnosis is acute coronary syndrome A cardiology consult will be obtained. Images Reviewed?: Images reviewed and evaluated by me Time of 1ST Reevaluation: 15:26 Reevaluation 1ST: Unchanged Patient Education/Counseling: Diagnosis, Treatment, Prognosis Family Education/Counseling: Diagnosis, Treatment, Prognosis Departure 1 Departure Time of Disposition: 15:25 Impression: Primary Impression: Acute coronary syndrome Disposition: ADMITTED INPATIENT Admit to: Tele Condition: Fair Critical Care Note Critical Care Time?: Yes (35 min-critical care time only) Stability Stability form required: Yes Unstable for transfer: Telemetry monitoring (Telemetry monitoring required), ED Physician Assesment (Clinical assesment) Heart Score Heart Score: Heart Score Response (Comments) Value History Moderate Suspicious 1 EKG Normal 0 Age 45-64 1 Risk Factors >3 or Hx ASHD 2 Troponin Normal limit 0 Total 4 I personally scribed for ROSENDO MISTRY MD ([email or web address]) on 08/27/24 at 13:29. Electronically submitted by Faheem Mcgill ([email or web address]). I personally scribed for ROSENDO MISTRY MD ([email or web address]) on 08/27/24 at 14:03. Electronically submitted by Faheem Mcgill ([email or web address]). ROSENDO MISTRY MD Aug 27, 2024 13:29
--- NOTE | 2024-08-27 13:48 | DVH ---
EXAM: XY CHEST TWO VIEWS ROUTINE CLINICAL HISTORY: sob COMPARISON: XY CHEST TWO VIEWS ROUTINE on DOS: 11/03/22 TECHNIQUE: Frontal and lateral view of the chest was obtained FINDINGS: Lines and Tubes: None Lungs: No focal consolidation. Pleura: No effusion. No pneumothorax. Cardiomediastinal contours:Within normal limits. Midline sternotomy wires. Pulmonary vasculature: Within normal limits. Bones: No acute osseous abnormality. IMPRESSION: 1. No acute cardiopulmonary disease. HS:Y
[2024-08-27 14:56] LABS: Basophils # (auto) 0.1 10 ^3/uL (0-0.2); Eosinophils # (auto) 0.1 10 ^3/uL (0-0.8); Eosinophils % (auto) 0.9 % (0.0-7.0); Hematocrit 40.9 % (41.0-53.0); Hemoglobin 13.8 g/dL (13.5-17.5); Lymphocytes # (auto) 0.5 10 ^3/uL (0.4-5.4); Lymphocytes % (auto) 6.5 % (10.0-50.0); Mean Corpuscular Hemoglobin 31.9 pg (28.0-32.0); Mean Corpuscular Hgb Conc. 33.7 g/dL (32.0-36.0); Mean Corpuscular Volume 94.6 fL (80.0-100.0); Monocytes % (auto) 13.1 % (0.0-12.0); Neutrophils # (auto) 5.9 10 ^3/uL (1.6-8.6); Neutrophils % (auto) 78.5 % (37.0-80.0); Nucleated Red Blood Cells % 0.2 %; Platelet Count (auto) 146 10^3/uL (140-450); Red Blood Cells 4.33 10^6/uL (4.5-5.90); Red Cell Distribution Width 14.4 % (11.8-14.3); White Blood Cell 7.5 10^3/uL (4.4-10.8)
[2024-08-27 15:12] LABS: Anion Gap 8 (5-15); Carbon Dioxide 27 mmol/L (20-31); Chloride 105 mmol/L (98-107); Sodium 140 mmol/L (136-145)
[2024-08-27 15:13] LABS: Calcium 9.6 mg/dL (8.7-10.4)
[2024-08-27 15:18] LABS: BUN/Creatinine Ratio 11.5 (10.0-20.0); Blood Urea Nitrogen 13 mg/dL (9-23); Glucose 100 mg/dL (74-106); Magnesium 1.8 mg/dL (1.6-2.6)
[2024-08-27 15:27] LABS: Potassium 3.3 mmol/L (3.5-5.1)
[2024-08-27 15:45] VITALS: PULSE 118; RESP 19; O2SAT 95
[2024-08-27] MEDS ORDERED: FLEC1TAB PO (17:41)
[2024-08-27] MEDS ORDERED: HYDROcodone-ACET 5/325MG TAB PO PRN (17:45)
[2024-08-27] MEDS ORDERED: ACETAMINOPHEN 325 MG TAB PO PRN (17:45)
[2024-08-27] MEDS ORDERED: DOCUSATE SOD 100 MG CAP PO PRN (17:45)
[2024-08-27] MEDS ORDERED: NITROGLYCERIN 0.4 MG SL TAB SL PRN (17:45)
[2024-08-27] MEDS ORDERED: ONDANSETRON HCL 4 MG/2 ML VIAL IV PRN (17:45)
[2024-08-27] MEDS ORDERED: MORPHINE SULFATE INJ 2 MG/ml SYRG IV PRN (17:45)
[2024-08-27] MEDS ORDERED: ATOR20TA50 PO (17:47)
--- NOTE | 2024-08-27 18:03 | DVHHP2 ---
History of Present Illness Reason for Visit: Shortness of breath History of Present Illness Min Marquez is a 63-year-old male with past medical history of hypertension, hyperlipidemia, arthritis, chronic back pain, COPD, CVA, and cancer, who came in due to shortness of breath. Patient has been complaining of worsening shortness of breath for the last few days. Yesterday he saw his vocational education teacher who noticed the patient's heart rate was elevated. He was prescribed a new medication to start. However, his shortness of breath was worsening so he came to the ER and never started the new medication. Patient also complains of chills and sore throat. states that everyone in the hose has had a cold and been experiencing flu like symptoms. At time of assessment patient is confused, not answering questions appropriately, and family at the bedside state that he is normally A&O x 4 and he was not like this earlier. Cardiovascular: HTN, hyperipidemia Pulmonary: COPD Heme/Onc: Cancer (colon ) Musculoskeletal: Chronic low back pain, Osteoarthritis Past Surgical History: Other (Oopen heart surgry for a mass) Family History: None Smoke: <1 pack per day ALCOHOL: occassional Drugs: Marijuana Lives: with Family Domestic Violence: Neg Review of Systems Constitutional: Yes: Chills, Weakness, Malaise; No: Fever, Sweats, Other Eyes: No: Pain, Vision change, Conjunctivae inflammation, Eyelid inflammation, Other, Redness ENT: No: Ear pain, Ear discharge, Nose pain, Nose discharge, Nose congestion, Mouth pain, Mouth swelling, Throat pain, Throat swelling, Other Respiratory: Shortness of breath, SOB with excertion; No: Cough, Dry, Wheezing, Hemoptysis, Pleuritic Pain, Sputum, Wheezing, Other Cardiovascular: No: Chest Pain, Palpitations, Orthopnea, Paroxysmal Noc. Dyspnea, Edema, Lt Headedness, Other Gastrointestinal: No: Nausea, Vomiting, Abdominal Pain, Diarrhea, Constipation, Melena, Hematochezia, Other Genitourinary: No Dysuria, No Frequency, No Incontinence, No Hematuria, No Retention, No Other Musculoskeletal: No: other, neck pain, shoulder pain, arm pain, back pain, hand pain, leg pain, foot pain Skin: No: Rash, Lesions, Jaundice, Bruising, Other Neurological: Confusion; No: Weakness, Numbness, Incoordination, Change in speech, Seizures, Other Allergies: Coded Allergies: Iodine (Verified Allergy, Unknown, 07/17/20) Medications Current Medications Medications Dose Ordered Sig/Jet Route Start Time Stop Time Status Last Admin Dose Admin Sodium Chloride 10 ml Q8HR IV 08/27/24 22:00 UNV Acetaminophen/ Hydrocodone Bitart 1 tab Q4HP PRN PO 08/27/24 17:45 UNV Ondansetron HCl 4 mg Q4HP PRN IV 08/27/24 17:45 UNV Docusate Sodium 100 mg BIDPRN PRN PO 08/27/24 17:45 UNV Acetaminophen 650 mg Q6HP PRN PO 08/27/24 17:45 UNV Nitroglycerin 0.4 mg Q5MINP PRN SL 08/27/24 17:45 UNV Morphine Sulfate 2 mg Q30M PRN IV 08/27/24 17:45 UNV Baclofen 10 mg Q8HR PO 08/27/24 22:00 UNV Bumetanide 1 mg DAILY PO 08/28/24 10:00 UNV Chlorthalidone 25 mg DAILY PO 08/28/24 10:00 UNV Flecainide Acetate 50 mg DAILY PO 08/28/24 10:00 UNV Gabapentin 300 mg TID PO 08/27/24 22:00 UNV Metoprolol Succinate 50 mg DAILY PO 08/28/24 10:00 UNV Nifedipine 30 mg DAILY PO 08/28/24 10:00 UNV Patient Own Medication 1 tab DAILY PO 08/28/24 10:00 UNV Patient Own Medication 1 tab TID PO 08/27/24 22:00 UNV Patient Own Medication 100 mg BIDP PO 08/27/24 22:00 UNV Patient Own Medication 1 mg DAILY PO 08/28/24 10:00 UNV Patient Own Medication 1 tab DAILY PO 08/28/24 10:00 UNV Atorvastatin Calcium 20 mg HS PO 08/27/24 22:00 UNV Exam Vital Signs Vital Signs Date Time Temp Pulse Resp B/P (MAP) Pulse Ox O2 Delivery O2 Flow Rate FiO2 08/27/24 13:29 120 08/27/24 13:14 99.2 20 127/79 (95) 95 General Appearance: Alert, Cooperative, mild distress, Other (disoriented) HEENT: Atraumatic, PERRLA Respiratory: Clear to auscultation, Normal air movement Cardiovascular: Normal S1, Normal S2, Other (Tachycardia) Abdominal: Normal bowel sounds, Soft, No tenderness Extremities: No clubbing, No cyanosis Skin: No rashes, No breakdown, No significant lesion Neuro: Other (Confused) Labs/Xrays Labs Test 08/27/24 15:19 08/27/24 14:26 Range/Units Troponin I High Sensitivity 17 </=54 ng/L White Blood Count 7.5 4.4-10.8 10^3/uL Red Blood Count 4.33 L 4.5-5.90 10^6/uL Hemoglobin 13.8 13.5-17.5 g/dL Hematocrit 40.9 L 41.0-53.0 % Mean Corpuscular Volume 94.6 80.0-100.0 fL Mean Corpuscular Hemoglobin 31.9 28.0-32.0 pg Mean Corpuscular Hemoglobin Concent 33.7 32.0-36.0 g/dL Red Cell Distribution Width 14.4 H 11.8-14.3 % Platelet Count 146 140-450 10^3/uL Mean Platelet Volume 11.6 H 6.9-10.8 fL Neutrophils (%) (Auto) 78.5 37.0-80.0 % Lymphocytes (%) (Auto) 6.5 L 10.0-50.0 % Monocytes (%) (Auto) 13.1 H 0.0-12.0 % Eosinophils (%) (Auto) 0.9 0.0-7.0 % Basophils (%) (Auto) 1.0 0.0-2.0 % Neutrophils # (Auto) 5.9 1.6-8.6 10 ^3/uL Lymphocytes # (Auto) 0.5 0.4-5.4 10 ^3/uL Monocytes # (Auto) 1.0 0-1.3 10 ^3/uL Eosinophils # (Auto) 0.1 0-0.8 10 ^3/uL Basophils # (Auto) 0.1 0-0.2 10 ^3/uL Nucleated Red Blood Cells 0.2 % Sodium Level 140 136-145 mmol/L Potassium Level 3.3 L 3.5-5.1 mmol/L Chloride Level 105 98-107 mmol/L Carbon Dioxide Level 27 20-31 mmol/L Anion Gap 8 5-15 Blood Urea Nitrogen 13 9-23 mg/dL Creatinine 1.13 0.700-1.30 mg/dL Glomerular Filtration Rate Calc 73 >90 mL/min BUN/Creatinine Ratio 11.5 10.0-20.0 Serum Glucose 100 74-106 mg/dL Calcium Level 9.6 8.7-10.4 mg/dL Magnesium Level 1.8 1.6-2.6 mg/dL B-Type Natriuretic Peptide 63.95 0-100 pg/mL EXAM: XY CHEST TWO VIEWS ROUTINE FINDINGS: Lines and Tubes: None Lungs: No focal consolidation. Pleura: No effusion. No pneumothorax. Cardiomediastinal contours:Within normal limits. Midline sternotomy wires. Pulmonary vasculature: Within normal limits. Bones: No acute osseous abnormality. IMPRESSION: 1. No acute cardiopulmonary disease. 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 Procedure Category Date Status Time Admit ADMIT 08/27/24 Transmitted 17:37 Code Status CODE 08/27/24 Transmitted 17:37 2 Gm Sodium Diet DIET 08/27/24 Transmitted Dinner Sodium Chloride Lock PHA 08/27/24 Logged (Saline Lock Ns) 22:00 Hydrocodone-Acet PHA 08/27/24 Logged 5/325mg Tab ([place] 17:45 Ondansetron Hcl PHA 08/27/24 Logged (Zofran) 17:45 Docusate Sodium PHA 08/27/24 Logged Capsule (Colace 17:45 Fall Risk Precautions DARIN 08/27/[address] 17:37 Complete Blood Count LAB 08/28/24 Verified 04:00 Comprehensive LAB 08/28/24 Verified Metabolic Panel 04:00 Condition: Serious DARIN 08/27/24 In Process 17:37 Acetaminophen Tablet PHA 08/27/24 Logged (Tylenol Tablet) 17:45 Nitroglycerin PHA 08/27/24 Logged Sublingual (Ntrostat 17:45 Morphine Sulfate PHA 08/27/24 Logged Injection 17:45 Stat Ekg For Chest DARIN 08/27/24 In Process Pain 17:37 Notify Of Changes [facility] 08/27/24 In Process From Base 17:37 Stone Decorator For DARIN 08/27/24 In Process 24 Hours 17:37 Emergency Dysrhythmia [facility] 08/27/24 In Process Protocol 17:37 Rhythm Strips Once DARIN 08/27/24 In Process Every Shift 17:37 Oxygen By Nasal RT 08/27/24 Transmitted Cannula 17:37 * Cardiology Consult CONS 08/27/24 Transmitted 17:37 Baclofen Tablet PHA 08/27/24 Logged (Liorisal Tablet) 22:00 Bumetanide Tablet PHA 08/28/24 Logged (Bumex Tablet) 10:00 Chlorthalidone PHA 08/28/24 Logged (Chlorthalidone) 10:00 Flecainide Tablet PHA 08/28/24 Logged (Tambocor Tablet) 10:00 Gabapentin Capsule PHA 08/27/24 Logged (Neurontin Capsule) 22:00 Metoprolol Xl PHA 08/28/24 Logged Succinate (Toprol Xl) 10:00 Nifedipine Er PHA 08/28/24 Logged (Procardia Xl 10:00 (NF) PHA 08/28/24 Logged Tthrieaj-Zdaaaluohqgg-Ovxymlui 10:00 (Nf) Calcium PHA 08/27/24 Logged Carbonate-Cholecalcife 22:00 (Nf) Docusate Sodium PHA 08/27/24 Logged 22:00 (Nf) Folic Acid PHA 08/28/24 Logged 10:00 (Nf) Telmisartan PHA 08/28/24 Logged (Micardis) 10:00 Atorvastatin (Lipitor) PHA 08/27/24 Transmitted 22:00 Date of Service: Aug 27, 2024 Billing Provider: KOLBY AVERY Common Visit Codes: [id number] INP/OBS CARE (MOD) KOLBY AVERY Aug 27, 2024 18:03
[2024-08-28] VITALS (9 sets, daily range): BP systolic 102–125; BP diastolic 72–85; PULSE 70–126; RESP 18–25; TEMP 98.8–99.7; O2SAT 93–99
[2024-08-28] MEDS: GABAPENTIN 300 MG CAP PO SCH ×2 (01:14→12:11)
[2024-08-28] MEDS: CALCIUM W/VIT D (600MG/400IU) TAB PO SCH ×2 (01:14→14:00)
[2024-08-28] MEDS: ATORVASTATIN 20 MG TAB PO SCH (01:15)
[2024-08-28] MEDS: BACLOFEN 10 MG TAB PO SCH ×2 (01:15→12:11)
[2024-08-28] MEDS: DOCUSATE SOD 100 MG CAP PO SCH (01:15)
[2024-08-28] MEDS: cefTRIAXone 1GM/50ML D5W 50 ML IV SCH (01:46)
[2024-08-28] MEDS: SODIUM CHLOR 0.9% PF (SALINE LOCK) 10ML VIAL/SYR IV SCH (01:46)
[2024-08-28 02:04] LABS: COVID19 ANTIGEN SOFIA FIA NEGATIVE (NEGATIVE)
[2024-08-28 02:05] LABS: Rapid Influenza B Negative (Negative)
--- NOTE | 2024-08-28 02:05 | ECG ---
[facility] Test Date: 2024-08-27 Test Time: 13:23:20 Pat Name: YUE BANUELOS Department: ER Room: 0282T Gender: M Manager Project: JONATHAN : 1960 Requested By: ROSENDO MISTRY Order Number: [id number] Reading MD: Derek Villalobos Measurements Intervals [place] Rate: 121 P: 37 MT: 128 QRS: -34 QRSD: 89 T: -1 QT: 327 QTc: 464 Interpretive Statements Sinus tachycardia Ventricular tachycardia, unsustained Left ventricular hypertrophy Inferior infarct, old Lateral infarct, acute Electronically Signed On 08-30-2024 10:23:51 PST by Derek Villalobos Please click the below link to view image of tracing.
[2024-08-28 02:06] LABS: Rapid Influenza A Positive (Negative)
--- NOTE | 2024-08-28 02:06 | ECG ---
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
[2024-08-28 05:22] LABS: Hematocrit 39.1 % (41.0-53.0); Hemoglobin 13.2 g/dL (13.5-17.5); Mean Corpuscular Hemoglobin 31.8 pg (28.0-32.0); Mean Corpuscular Hgb Conc. 33.9 g/dL (32.0-36.0); Mean Corpuscular Volume 93.8 fL (80.0-100.0); Platelet Count (auto) 123 10^3/uL (140-450); Red Blood Cells 4.17 10^6/uL (4.5-5.90); Red Cell Distribution Width 14.1 % (11.8-14.3); White Blood Cell 7.1 10^3/uL (4.4-10.8)
[2024-08-28 05:31] LABS: Band Neutrophils % (manual) 0; Blast Cells 0; Eosinophils % (manual) 0 (0-7); Metamyelocytes % 0; Myelocytes % 0; Promyelocytes % 0; Reactive Lymphocytes 0
[2024-08-28 05:32] LABS: Alanine Aminotransferase 22 U/L (7-40); Alkaline Phosphatase 69 U/L (46-116); Anion Gap 9 (5-15); Aspartate Aminotransferase 39 U/L (13-40); BUN/Creatinine Ratio 11.3 (10.0-20.0); Blood Urea Nitrogen 13 mg/dL (9-23); Calcium 9.8 mg/dL (8.7-10.4); Carbon Dioxide 26 mmol/L (20-31); Chloride 102 mmol/L (98-107); Glucose 98 mg/dL (74-106); Sodium 137 mmol/L (136-145)
[2024-08-28 05:33] LABS: Albumin 4.1 g/dL (3.2-4.8); Bilirubin, Total 0.6 mg/dL (0.2-1.0); Total Protein 7.1 g/dL (5.7-8.2)
[2024-08-28 05:36] LABS: Basophils % (manual) 1 (0.0-2.0); Lymphocytes % (manual) 17 (10.0-50.0); Monocytes % (manual) 13 (0-12); Platelet Estimate Decreased
[2024-08-28 06:48] LABS: Giant Platelets Few; Large Platelets FEW
[2024-08-28] MEDS: POTASSIUM CHL 20 Meq TABLET PO ONE (07:10)
--- NOTE | 2024-08-28 07:10 | DVHINCON2 ---
Date of service: Aug 28, 2024 History of Present Illness HPI Patient is 73 year old male who presented with few days of shortness of breath accompanied with chills, sore throat and palpitations. Reportedly all the family are sick. He also was experiencing more than usual palpitations. Cardiology is involved for cardiac aspects of care. Patient tis known to or practice from outside. He recently was fond to have frequent SVT and was prescribed Flecainide for it. His PMH includes controlled HIV. Denies LOC. Denies dizziness. Denies chest pain. Home Meds Active Scripts Tiotropium [place] Monohydrate (Spiriva Respimat) 2.5 Mcg/Act Spr, 2.5 MCG IN DAILY for 30 Days, #1 SPRAY Prov:NELIA FOX MD 11/07/22 Reported Medications Atorvastatin Calcium (ATORVASTATIN CALCIUM) 20 Mg Tab, 1 TAB PO HS 08/27/24 Flecainide Acetate (Flecainide Acetate) 50 Mg Tab, 1 TAB PO DAILY 08/27/24 Metoprolol Succinate (Metoprolol Succinate Er) 50 Mg Tab, 1 TAB PO DAILY 11/01/22 Spironolactone (Spironolactone) 25 Mg Tab, 1 TAB PO BID, #90 TAB 1 Refill 07/17/20 Dexlansoprazole (Dexilant) 60 Mg Cap, 60 MG PO DAILY, CAP 07/17/20 Bumetanide (Bumetanide) 1 Mg Tab, 1 MG PO DAILY for 30 Days, MG 07/17/20 Gabapentin (Gabapentin) 300 Mg Cap, 300 MG PO TID for 30 Days, MG 07/17/20 Chlorthalidone (Chlorthalidone) 25 Mg Tab, 25 MG PO DAILY, TAB 07/17/20 Ferrous Sulfate (Ferrous Sulfate) 325 Mg Tab, 325 MG PO TIDWM for 30 Days 07/17/20 Baclofen (Baclofen) 10 Mg Tab, 10 MG PO Q8HR for 30 Days, MG 07/17/20 Diphenhydramine Hcl (Banophen) 25 Mg Cap, 25 MG PO DAILY, CAP 07/17/20 Nifedipine (Nifedipine Er) 30 Mg Tab, 1 TAB PO DAILY, #90 TAB 1 Refill 07/17/20 Folic Acid (Folic Acid) 1 Mg Tab, 1 MG PO DAILY for 30 Days, MG 07/17/20 Telmisartan (Micardis) 80 Mg Tab, 1 TAB PO DAILY, #30 TAB 5 Refills 07/17/20 Vdchtupa-Wkgosltjtwwd-Bgttfrju (Triumeq 600-50-300 mg) 1 Tab Tab, 1 TAB PO DAILY, TAB 07/17/20 Calcium Carbonate-Cholecalcife (OYSCO 500+D) Chw, 1 TAB PO TID, TAB.CHEW 07/17/20 Naloxegol Oxalate (Movantik) 25 Mg Tab, 25 MG PO DAILY, TAB 07/17/20 Docusate Sodium (Docusate Sodium) 100 Mg Tab, 100 MG PO BIDP for 30 Days, MG 07/17/20 Discontinued Reported Medications Atorvastatin Calcium (ATORVASTATIN CALCIUM) 10 Mg Tab, 1 TAB PO DAILY, #30 TAB 5 Refills 07/17/20 Discontinued Scripts Ondansetron Odt 4MG Tab (ZOFRAN PO) 4 Mg Tb, 4 MG PO Q6HP PRN, #20 TAB ODT TAB-DISSOLVE IN MOUTH, THEN SWALLOW Prov:JONATHON BUSH PAC 10/12/23 Acetaminophen (Acetaminophen) 500 Mg Tab, 500 MG PO Q4HP PRN, #20 TAB Prov:JONATHON BUSH PAC 10/12/23 Levofloxacin (Levaquin 750 mg) 750 Mg Tab, 1 TAB PO DAILY for 9 Days, #9 TAB Prov:JONATHON BUSH PAC 10/12/23 Fluconazole (Fluconazole) 200 Mg Tab, 1 TAB PO DAILY for 12 Days, #12 TAB Prov:NELIA FOX MD 11/07/22 Past Medical History Others PMH includes: COD, old CVA, hypertension, hyperlipidemia, old prostate cancer, DJD, LBP, DDD (lumbar spine), Morbid obesity, History of HIV (goes to [facility] for its management) and history of hernia repair. Has history of heart surgery to remove a benign mass (?) years ago. Denies CABG. Has been recently diagnosed with frequent SVT and was started on Flecainide. Smokes cigarette. Occasionally uses Marijuana. Drinks alcohol regularly. Patient Family History: Patient reports no known family medical history. Smoker: Positive Alocohol: Moderate Drugs: None Review of Systems Constitutional: Chills, Malaise Pulmonary/Respiratory: Dyspnea, Cough, Pleuritic Chest Pain Cardiovascular: Palpitations All Other Systems 14 point review of system was performed. Relevant findings as per above and as per HPI. Otherwise negative H&P Exam Vital Signs Vital Signs Date Time Temp Pulse Resp B/P (MAP) Pulse Ox O2 Delivery O2 Flow Rate FiO2 08/28/24 06:00 114 24 122/100 (107) 94 08/28/24 00:50 Nasal Cannula* 2 28 08/28/24 00:48 99.2 99.2 General Appeara: Well developed, Mild distress Head Exam: Normal inspection Eye Exam: bilateral eye PERRL Pulmonary/Respiratory: Rhonci Cardiovascular/Chest: Tachycardia, Systolic murmur Peripheral Pulses: 2+ carotid (R), 2+ carotid (L), 2+ femoral (R), 2+ femoral (L), 2+ dorsalis pedis (R), 2+ dorsalis pedis (L), 2+ Radial (R), 2+ Radial (L) Abdominal Exam: Normal bowel sounds, Soft Neuro/Mental St: Alert, Oriented Eye contact/ Speech: Cooperative Labs/Xrays Labs Test 08/28/24 04:20 08/28/24 00:26 08/27/24 18:30 08/27/24 14:26 Range/Units White Blood Count 7.1 4.4-10.8 10^3/uL Red Blood Count 4.17 L 4.5-5.90 10^6/uL Hemoglobin 13.2 L 13.5-17.5 g/dL Hematocrit 39.1 L 41.0-53.0 % Mean Corpuscular Volume 93.8 80.0-100.0 fL Mean Corpuscular Hemoglobin 31.8 28.0-32.0 pg Mean Corpuscular Hemoglobin Concent 33.9 32.0-36.0 g/dL Red Cell Distribution Width 14.1 11.8-14.3 % Platelet Count 123 L 140-450 10^3/uL Mean Platelet Volume 10.9 H 6.9-10.8 fL Neutrophils (%) (Auto) 37.0-80.0 % Lymphocytes (%) (Auto) 10.0-50.0 % Monocytes (%) (Auto) 0.0-12.0 % Basophils (%) (Auto) 0.0-2.0 % Neutrophils # (Auto) 1.6-8.6 10 ^3/uL Lymphocytes # (Auto) 0.4-5.4 10 ^3/uL Monocytes # (Auto) 0-1.3 10 ^3/uL Differential Total Cells Counted 100.0 100 Neutrophils % (Manual) 69 37.0-80.0 Band Neutrophils % (Manual) 0 Lymphocytes % (Manual) 17 10.0-50.0 Monocytes % (Manual) 13 H 0-12 Eosinophils % (Manual) 0 0-7 Basophils % (Manual) 1 0.0-2.0 Metamyelocytes % (manual) 0 Myelocytes % (Manual) 0 Promyelocytes % (Manual) 0 Blast Cells % (Manual) 0 Reactive Lymphocytes 0 Platelet Estimate Decreased Large Platelets Few Giant Platelets Few Sodium Level 137 136-145 mmol/L Potassium Level 3.0 L 3.5-5.1 mmol/L Chloride Level 102 98-107 mmol/L Carbon Dioxide Level 26 20-31 mmol/L Anion Gap 9 5-15 Blood Urea Nitrogen 13 9-23 mg/dL Creatinine 1.15 0.700-1.30 mg/dL Glomerular Filtration Rate Calc 71 >90 mL/min BUN/Creatinine Ratio 11.3 10.0-20.0 Serum Glucose 98 74-106 mg/dL Calcium Level 9.8 8.7-10.4 mg/dL Total Bilirubin 0.6 0.2-1.0 mg/dL Aspartate Amino Transferase (AST) 39 13-40 U/L Alanine Aminotransferase (ALT) 22 7-40 U/L Alkaline Phosphatase 69 46-116 U/L Total Protein 7.1 5.7-8.2 g/dL Albumin 4.1 3.2-4.8 g/dL Influenza Type A Antigen Positive Negative Influenza Type B Antigen Negative Negative SARS-CoV-2 Antigen (Rapid) Negative NEGATIVE Troponin I High Sensitivity 18 </=54 ng/L Eosinophils (%) (Auto) 0.9 0.0-7.0 % Eosinophils # (Auto) 0.1 0-0.8 10 ^3/uL Basophils # (Auto) 0.1 0-0.2 10 ^3/uL Nucleated Red Blood Cells 0.2 % Magnesium Level 1.8 1.6-2.6 mg/dL B-Type Natriuretic Peptide 63.95 0-100 pg/mL Assessment/Plan Plan Patient is 73 year old male who presented with few days of shortness of breath accompanied with chills, sore throat and palpitations. Reportedly all the family are sick. He also was experiencing more than usual palpitations. Cardiology is involved for cardiac aspects of care. Patient tis known to or practice from outside. He recently was fond to have frequent SVT and was prescribed Flecainide for it. His PMH includes controlled HIV. Denies LOC. Denies dizziness. Denies chest pain. NAD, lying in bed flat. Is short of breath and is on nasal canula O2 therapy. Mucosa is wet and pink. no Carotid bruit. No cervical lymphadenopathy. No goiter. Not using accessory muscles of breathing. Healed mid sternal scar is seen. Scattered rhonchi in lungs is heard. Cardiac: RR, tachycardia is present. Systolic murmur, 2 out of 6 in apex. Abdomen is soft, no gross mass, no gross hepatomegaly. Ext: no edema. DP is 2+ bilateral PMH includes: COD, old CVA, hypertension, hyperlipidemia, old prostate cancer, DJD, LBP, DDD (lumbar spine), Morbid obesity, History of HIV (goes to [facility] for its management) and history of hernia repair. Has history of heart surgery to remove a benign mass (?) years ago. Denies CABG. Has been recently diagnosed with frequent SVT and was started on Flecainide. Smokes cigarette. Occasionally uses Marijuana. Drinks alcohol regularly. Echo in ([facility]): reported LVH, EF of 60%, Dilated Aortic root, Left [place] enlargement and mild TR Echocardiogram of February/2024 (performed in office) revealed: borderline concentric left ventricular hypertrophy, LVEF of 60 to 65%, normal diastole, Mild to moderate TR and RVSP of 28 mmHg Nuclear stress test of (performed in office): normal perfusion and EF of 63% WBC: 7.5 - 7.1 Hgb: 13.8 - 13.2 Creat: 1.13 - 1.15 K: 3.3 - 3.0 Trop (high sensitive): 15 - 17 -18 BNP: 63.95 Influenza type A: Positive Chest xry reported: FINDINGS: Lines and Tubes: None Lungs: No focal consolidation. Pleura: No effusion. No pneumothorax. Cardiomediastinal contours:Within normal limits. Midline sternotomy wires. Pulmonary vasculature: Within normal limits. Bones: No acute osseous abnormality. IMPRESSION: 1. No acute cardiopulmonary disease. EKG revealed sinus tachycardia, LVH and no ST T changes. Tele reveals sinus tachycardia Patient is 63 year old male who presented with fever, shortness of breath, chills, sore throat. He is found to have Influenzae. Does have sepsis. Findings question flu related Bronchitis and sepsis. Tachycardia at this point is assessed to be secondary to sepsis. Recognizing history of HIV, patient is considered immunocompromised. Acute coronary syndrome is not considered. Influenza Bronchitis Acute respiratory failure Sepsis History of HIV COPD exacerbation Hypertension hyperlipidemia DDD Morbid Obesity SVT, history of Cardiac suggestion for management: Manage on Tele Follow up electrolytes and kidney function test and correct abnormalities. Keep potassium above 4 and Magnesium above 2 Metoprolol Tartrate at 25 mg PO TID at this point Request for Echocardiogram Management of Flu/sepsis/Bronchitis as per primary team/pulmonary/ID Consider Tamiflu Consider ID evaluation (history of HIV) Further evaluation and management depends on the above and clinical course Thank you for consultation A total of 75 minutes was spent reviewing the patient record, examining the patient, making a diagnostic and therapeutic plan, discussing this plan with medical personnel, following up on diagnostic studies and following the patient for clinical stability excluding any and all procedures. At least 50% of this time was spent in direct, [id number] contact. Thank you for allowing me to participate in this patient's care. Further recommendations will depend on patient's clinical course. Please do not hesitate to contact me if you have any questions or concerns. This medical document was created using electronic medical record system with [employer] computerized dictation system. Although this document has been carefully reviewed, there may still be some phonetic and typographical errors. These areas are purely typographical due to the imperfection of the software programs, and do not reflect any compromise in the patient's medical care. Plan discussed with: Patient, Other JONATHON MENDOZA MD Aug 28, 2024 07:10
[2024-08-28] MEDS: ABACAVIR DOLUTEGRAVIR LAMIVUDI PO SCH (10:00)
[2024-08-28] MEDS: FLECAINIDE ACETATE 50 MG TAB PO SCH (10:00)
[2024-08-28] MEDS: BUMETANIDE 1 MG TAB PO SCH (10:00)
[2024-08-28] MEDS ORDERED: METOPROLOL SUCCINATE XL 50 MG TAB PO SCH (10:00)
[2024-08-28] MEDS: FOLIC ACID 1 MG TAB PO SCH (12:09)
[2024-08-28] MEDS: ASPirin 81 mg TAB PO SCH (12:09)
[2024-08-28] MEDS: CHLORTHALIDONE 25 MG TAB PO SCH (12:10)
[2024-08-28] MEDS: LOSARTAN POTASSIUM 50 MG TAB PO SCH (12:14)
[2024-08-28] MEDS: NIFEdipine ER 30 MG TAB PO SCH (12:14)
[2024-08-28 13:38] LABS: Urine Bacteria None Seen /hpf (None Seen)
[2024-08-28 13:55] LABS: Urine Blood 1+ /uL (Negative); Urine Clarity Clear (Clear); Urine Color Yellow (Yellow); Urine Mucus FEW (None Seen); Urine Protein, UAD 2+ (Negative); Urine Specific Gravity 1.026 (1.001-1.035); Urine Squamous Epithelial Cell FEW /hpf (<5); Urine Urobilinogen Normal (Negative); Urine WBC 2 /hpf (0 - 3)
[2024-08-28] MEDS: METOPROLOL TARTRATE 25 MG TAB PO SCH (14:00)
--- NOTE | 2024-08-28 18:26 | DVHPN2 ---
Subjective Seen and examined at bedside. Cont Meds. Will not start TamiFlu due to possible interaction with ARVT for HIV. Changes from previous H/P or p: No Changes Eyes: No Pain, No Vision change, No Conjunctivae inflammation, No Eyelid inflammation, No Other, No Redness ENT: No Ear pain, No Ear discharge, No Nose pain, No Nose discharge, No Nose congestion, No Mouth pain, No Mouth swelling, No Throat pain, No Throat swelling, No Other Cardiovascular: No Chest Pain, No Palpitations, No Orthopnea, No Paroxysmal Noc. Dyspnea, No Edema, No Lt Headedness, No Other Respiratory: No Cough, No Dry; Shortness of breath, SOB with excertion; No Wheezing, No Hemoptysis, No Pleuritic Pain, No Sputum, No Other Gastrointestinal: No Nausea, No Vomiting, No Abdominal Pain, No Diarrhea, No Constipation, No Melena, No Hematochezia, No Other Genitourinary: No Dysuria, No Frequency, No Incontinence, No Hematuria, No Retention, No Other Musculoskeletal: No other, No neck pain, No shoulder pain, No arm pain, No back pain, No hand pain, No leg pain, No foot pain Skin: No Rash, No Lesions, No Jaundice, No Bruising, No Other Objective Vitals Vital Signs Date Time Temp Pulse Resp B/P (MAP) Pulse Ox O2 Delivery O2 Flow Rate FiO2 08/28/24 16:39 99.1 70 20 102/81 (88) 98 99.1 08/28/24 14:31 Nasal Cannula* 3 32 Intake/Output Intake and Output 08/28/24 07:00 Intake Total 50 ml Balance 50 ml IV Total 50 ml Medications Current Medications Medications Dose Ordered Sig/Jet Route Start Time Stop Time Status Last Admin Dose Admin Sodium Chloride 10 ml Q8HR IV 08/27/24 22:00 08/28/24 06:37 10 ML Acetaminophen/ Hydrocodone Bitart 1 tab Q4HP PRN PO 08/27/24 17:45 Ondansetron HCl 4 mg Q4HP PRN IV 08/27/24 17:45 Docusate Sodium 100 mg BIDPRN PRN PO 08/27/24 17:45 Acetaminophen 650 mg Q6HP PRN PO 08/27/24 17:45 Nitroglycerin 0.4 mg Q5MINP PRN SL 08/27/24 17:45 Morphine Sulfate 2 mg Q30M PRN IV 08/27/24 17:45 Bumetanide 1 mg DAILY PO 08/28/24 10:00 Chlorthalidone 25 mg DAILY PO 08/28/24 10:00 08/28/24 12:10 25 MG Flecainide Acetate 50 mg DAILY PO 08/28/24 10:00 Nifedipine 30 mg DAILY PO 08/28/24 10:00 08/28/24 12:14 30 MG Patient Own Medication 1 tab DAILY PO 08/28/24 10:00 Docusate Sodium 100 mg BID PO 08/27/24 22:00 08/28/24 12:10 100 MG Folic Acid 1 mg DAILY PO 08/28/24 10:00 08/28/24 12:09 1 MG Losartan Potassium 100 mg DAILY PO 08/28/24 10:00 08/28/24 12:14 100 MG Atorvastatin Calcium 20 mg HS PO 08/27/24 22:00 08/28/24 01:15 20 MG Ceftriaxone Sodium 50 ml @ 100 mls/hr DAILY@09 IV 08/27/24 18:04 08/28/24 12:09 100 MLS/HR Aspirin 81 mg DAILY PO 08/28/24 10:00 08/28/24 12:09 81 MG Gabapentin 300 mg Q8H PO 08/28/24 10:00 08/28/24 17:53 300 MG Baclofen 10 mg Q8H PO 08/28/24 10:00 08/28/24 17:54 10 MG Calcium/Vitamin D 1 tab TID PO 08/28/24 14:00 Metoprolol Tartrate 25 mg TID PO 08/28/24 14:00 Laboratory Results Laboratory Tests 08/28/24 04:20 Chemistry Test 08/28/24 04:20 Albumin 4.1 g/dL (3.2-4.8) Calcium Level 9.8 mg/dL (8.7-10.4) Total Protein 7.1 g/dL (5.7-8.2) LFT Test 08/28/24 04:20 Alanine Aminotransferase (ALT) 22 U/L (7-40) Alkaline Phosphatase 69 U/L (46-116) Aspartate Amino Transferase (AST) 39 U/L (13-40) Total Bilirubin 0.6 mg/dL (0.2-1.0) Urinalysis Test 08/28/24 13:30 Urine Color Yellow (Yellow) Urine Clarity Clear (Clear) Urine pH 6.0 (5.0-9.0) Urine Specific [place] 1.026 (1.001-1.035) Urine Protein 2+ (Negative) H Urine Ketones Trace (Negative) Urine Blood 1+ /uL (Negative) H Urine Nitrite Negative (Negative) Urine Bilirubin Negative (Negative) Urine Urobilinogen Normal mg/dL (Negative) Urine Leukocyte Esterase Negative /uL (Negative) Urine RBC 7 /hpf (0 - 3) Urine WBC 2 /hpf (0 - 3) Urine Squamous Epithelial Cells Few /hpf (<5) Urine Bacteria None seen /hpf (None Seen) Urine Mucus Few (None Seen) Urine Glucose Normal mg/dL (Normal) Assessment/Plan Assessment/Plan Influenza Bronchitis- Unable to give TamiFlu. Doxy for now Acute respiratory failure- Titrate as tolerated HIV- Cont ARVT COPD exacerbation - bronchodilators Hypertension- Cont meds hyperlipidemia DDD Morbid Obesity SVT, history of - Cont meds. Cx Dr. Newman. Plan discussed with: Patient Date of Service: Aug 28, 2024 Billing Provider: DAISHA LIRIANO MD Common Visit Codes: [id number] INP/OBS CARE(HIGH) DAISHA LIRIANO MD Aug 28, 2024 18:26
[2024-08-29] VITALS (12 sets, daily range): BP systolic 104–133; BP diastolic 52–96; PULSE 67–122; RESP 18–21; TEMP 98.1–99.2; O2SAT 93–100
[2024-08-29] MEDS: DOXYCYCLINE 100 MG TAB/CAP PO SCH (01:13)
[2024-08-29 07:15] LABS: Anion Gap 9 (5-15); Basophils # (auto) 0 10 ^3/uL (0-0.2); Basophils % (auto) 0.7 % (0.0-2.0); Carbon Dioxide 26 mmol/L (20-31); Chloride 102 mmol/L (98-107); Eosinophils # (auto) 0 10 ^3/uL (0-0.8); Eosinophils % (auto) 0.9 % (0.0-7.0); Hematocrit 41.8 % (41.0-53.0); Hemoglobin 14.4 g/dL (13.5-17.5); Lymphocytes # (auto) 1.7 10 ^3/uL (0.4-5.4); Lymphocytes % (auto) 31.8 % (10.0-50.0); Mean Corpuscular Hemoglobin 32.2 pg (28.0-32.0); Mean Corpuscular Hgb Conc. 34.4 g/dL (32.0-36.0); Mean Corpuscular Volume 93.7 fL (80.0-100.0); Monocytes # (auto) 0.7 10 ^3/uL (0-1.3); Monocytes % (auto) 13.5 % (0.0-12.0); Neutrophils # (auto) 2.8 10 ^3/uL (1.6-8.6); Neutrophils % (auto) 53.1 % (37.0-80.0); Nucleated Red Blood Cells % 0.2 %; Platelet Count (auto) 131 10^3/uL (140-450); Potassium 3.5 mmol/L (3.5-5.1); Red Blood Cells 4.47 10^6/uL (4.5-5.90); Red Cell Distribution Width 13.8 % (11.8-14.3); Sodium 137 mmol/L (136-145); White Blood Cell 5.3 10^3/uL (4.4-10.8)
[2024-08-29 07:16] LABS: Calcium 10.2 mg/dL (8.7-10.4)
[2024-08-29 07:21] LABS: BUN/Creatinine Ratio 13.9 (10.0-20.0); Blood Urea Nitrogen 14 mg/dL (9-23); Glucose 105 mg/dL (74-106)
[2024-08-29 07:22] LABS: Magnesium 2.1 mg/dL (1.6-2.6)
--- NOTE | 2024-08-29 07:32 | DVHPN2 ---
Progress Note - Dictate Date Seen: Aug 29, 2024 Medical Necessity Reason Pt with a Central, PICC or Fol: No vital signs Vital Sign Date Time Temp Pulse Resp B/P (MAP) Pulse Ox O2 Delivery O2 Flow Rate FiO2 08/29/24 06:37 93 101/66 08/29/24 05:00 99.1 19 97 99.1 08/28/24 20:36 3.0 08/28/24 20:00 Nasal Cannula* 32 Total Intake and Output 08/28/24 08/28/24 08/29/24 15:00 23:00 07:00 Intake Total 50 ml 800 ml 1050 ml Balance 50 ml 800 ml 1050 ml medications Current Medications Medications Dose Ordered Sig/Jet Route Start Time Stop Time Status Last Admin Dose Admin Sodium Chloride 10 ml Q8HR IV 08/27/24 22:00 08/29/24 05:31 10 ML Acetaminophen/ Hydrocodone Bitart 1 tab Q4HP PRN PO 08/27/24 17:45 Ondansetron HCl 4 mg Q4HP PRN IV 08/27/24 17:45 Docusate Sodium 100 mg BIDPRN PRN PO 08/27/24 17:45 Acetaminophen 650 mg Q6HP PRN PO 08/27/24 17:45 Nitroglycerin 0.4 mg Q5MINP PRN SL 08/27/24 17:45 Morphine Sulfate 2 mg Q30M PRN IV 08/27/24 17:45 Bumetanide 1 mg DAILY PO 08/28/24 10:00 Chlorthalidone 25 mg DAILY PO 08/28/24 10:00 08/28/24 12:10 25 MG Flecainide Acetate 50 mg DAILY PO 08/28/24 10:00 Nifedipine 30 mg DAILY PO 08/28/24 10:00 08/28/24 12:14 30 MG Patient Own Medication 1 tab DAILY PO 08/28/24 10:00 Docusate Sodium 100 mg BID PO 08/27/24 22:00 08/28/24 22:25 100 MG Folic Acid 1 mg DAILY PO 08/28/24 10:00 08/28/24 12:09 1 MG Losartan Potassium 100 mg DAILY PO 08/28/24 10:00 08/28/24 12:14 100 MG Atorvastatin Calcium 20 mg HS PO 08/27/24 22:00 12/18/24 22:25 20 MG Ceftriaxone Sodium 50 ml @ 100 mls/hr DAILY@09 IV 08/27/24 18:04 08/28/24 12:09 100 MLS/HR Aspirin 81 mg DAILY PO 08/28/24 10:00 08/28/24 12:09 81 MG Gabapentin 300 mg Q8H PO 08/28/24 10:00 08/29/24 01:14 300 MG Baclofen 10 mg Q8H PO 08/28/24 10:00 08/29/24 01:14 10 MG Calcium/Vitamin D 1 tab TID PO 08/28/24 14:00 08/29/24 05:34 1 TAB Metoprolol Tartrate 25 mg TID PO 08/28/24 14:00 08/29/24 05:37 25 MG Doxycycline Monohydrate 100 mg Q12HR PO 08/28/24 22:00 08/29/24 01:13 100 MG Albuterol 2.5 mg Q6HWA [facility] 08/29/24 06:00 Ipratropium [place] 0.5 mg Q6HWA [facility] 08/29/24 06:00 laboratory and microbiology Laboratory Tests 08/29/24 06:03 Test 08/29/24 06:03 Range/Units Serum Glucose 105 74-106 mg/dL Assessment/Plan Patient is 73 year old male who presented with few days of shortness of breath accompanied with chills, sore throat and palpitations. Reportedly all the family are sick. He also was experiencing more than usual palpitations. Cardiology is involved for cardiac aspects of care. Patient is known to or practice from outside. He recently was fond to have frequent SVT and was prescribed Flecainide for it. His PMH includes controlled HIV. Denies LOC. Denies dizziness. Denies chest pain. NAD, lying in bed flat. Is short of breath and is on nasal canula O2 therapy. Mucosa is wet and pink. no Carotid bruit. No cervical lymphadenopathy. No goiter. Not using accessory muscles of breathing. Healed mid sternal scar is seen. Scattered rhonchi in lungs is heard. Cardiac: RR, tachycardia is present. Systolic murmur, 2 out of 6 in apex. Abdomen is soft, no gross mass, no gross hepatomegaly. Ext: no edema. DP is 2+ bilateral PMH includes: COD, old CVA, hypertension, hyperlipidemia, old prostate cancer, DJD, LBP, DDD (lumbar spine), Morbid obesity, History of HIV (goes to [facility] for its management) and history of hernia repair. Has history of heart surgery to remove a benign mass (?) years ago. Denies CABG. Has been recently diagnosed with frequent SVT and was started on Flecainide. Smokes cigarette. Occasionally uses Marijuana. Drinks alcohol regularly. Echo in ([facility]): reported LVH, EF of 60%, Dilated Aortic root, Left [place] enlargement and mild TR Echocardiogram of February/2024 (performed in office) revealed: borderline concentric left ventricular hypertrophy, LVEF of 60 to 65%, normal diastole, Mild to moderate TR and RVSP of 28 mmHg Nuclear stress test of (performed in office): normal perfusion and EF of 63% WBC: 7.5 - 7.1 Hgb: 13.8 - 13.2 Creat: 1.13 - 1.15 - 1.01 K: 3.3 - 3.0 - 3.5 Trop (high sensitive): 15 - 17 -18 BNP: 63.95 Influenza type A: Positive Chest xry reported: FINDINGS: Lines and Tubes: None Lungs: No focal consolidation. Pleura: No effusion. No pneumothorax. Cardiomediastinal contours:Within normal limits. Midline sternotomy wires. Pulmonary vasculature: Within normal limits. Bones: No acute osseous abnormality. IMPRESSION: 1. No acute cardiopulmonary disease. EKG revealed sinus tachycardia, LVH and no ST T changes. Tele reveals sinus tachycardia Patient is 63 year old male who presented with fever, shortness of breath, chills, sore throat. He is found to have Influenzae. Does have sepsis. Findings question flu related Bronchitis and sepsis. Tachycardia at this point is assessed to be secondary to sepsis. Recognizing history of HIV, patient is considered immunocompromised. Acute coronary syndrome is not considered. Influenza Bronchitis Acute respiratory failure Sepsis History of HIV COPD exacerbation Hypertension hyperlipidemia DDD Morbid Obesity SVT, history of Cardiac suggestion for management: Manage on Tele Follow up electrolytes and kidney function test and correct abnormalities. Keep potassium above 4 and Magnesium above 2 Metoprolol Tartrate at 25 mg PO TID Awaiting Echocardiogram Management of Flu/sepsis/Bronchitis as per primary team/pulmonary/ID Consider ID evaluation (history of HIV) Further evaluation and management depends on the above and clinical course A total of 75 minutes was spent reviewing the patient record, examining the patient, making a diagnostic and therapeutic plan, discussing this plan with medical personnel, following up on diagnostic studies and following the patient for clinical stability excluding any and all procedures. At least 50% of this time was spent in direct, [id number] contact. Thank you for allowing me to participate in this patient's care. Further recommendations will depend on patient's clinical course. Please do not hesitate to contact me if you have any questions or concerns. This medical document was created using electronic medical record system with [employer] computerized dictation system. Although this document has been carefully reviewed, there may still be some phonetic and typographical errors. These areas are purely typographical due to the imperfection of the software programs, and do not reflect any compromise in the patient's medical care. Plan discussed with: Patient, Other (nurse) JONATHON MENDOZA MD Aug 29, 2024 07:32
[2024-08-29] MEDS: ALBUTEROL SULF 2.5 MG/0.5ML(0.5%) NEB SOLN NEB SCH (07:34)
[2024-08-29] MEDS: IPRATROPIUM BROM 0.5 MG/2.5ML INH SOL NEB SCH (07:34)
[2024-08-29 08:27] LABS: Giant Platelets Few; Large Platelets FEW; Platelet Estimate Decreased
--- NOTE | 2024-08-29 16:54 | DVHSR ---
APPROVED REPORT EXAM: Two-dimensional and M-mode echocardiogram with Doppler and color Doppler. Blood Pressure: 101/66 mmHg INDICATION SOB RISK FACTORS Height: 73, Weight: 238 DIMENSIONS LVDd (3.8-5.7cm)LA (2D)4.5 (1.9-4.0cm)Aortic Root3.8 (2.0-3.7cm) LVDs (2.5-4.0cm)LA (MM) (1.9-4.0cm)Aortic Cusp Exc1.9 (1.5-2.0cm) EF (%) 61.0 (55-70%)Rt. Atrium4.7 (1.9-4.0cm)Asc. Aorta cm Mitral Valve MitralMitral Stenosis E wave0.41m/sMV Mean GR.mmHg A wave0.72m/sMV Peak GR.mmHg E/A ratio0.62D MVAcm2 DECEL [id number] 1/2 [id number] IVRTmsDop MVA3.09cm2 Aortic Valve Aortic ValveAortic Stenosis V11.10m/Lb Mean GR.4mmHg V21.41m/Lb Peak GR.8mmHg LVOT Diameter1.8 (1.8-2.4cm)Doppler AVA1.98cm2 Pulmonic Valve V21.16m/s Other Information Technically limited study due to body habitus and patient position. Conclusion Left ventricle: Left ventricle was normal-sized with normal systolic function. There was no gross w all motion abnormality. LVEF of 61%. Right ventricle was normal-sized with normal systolic function. Both atria were normal-sized. Aortic valve was not well visualized. There was no aortic insufficiency/stenosis. There was trivial mitral/tricuspid regurgitation. Pulmonary valve was not well visualized. As there was no good tricuspid regurgitation jet, right ventricular systolic pressure could not be es timated. There was no echocardiographic evidence for pulmonary hypertension. There was no pericardial effusion.
--- NOTE | 2024-08-29 17:54 | DVHPN2 ---
Subjective Seen and examined at bedside. Cont Meds. Titrate oxygen down Changes from previous H/P or p: No Changes Eyes: No Pain, No Vision change, No Conjunctivae inflammation, No Eyelid inflammation, No Other, No Redness ENT: No Ear pain, No Ear discharge, No Nose pain, No Nose discharge, No Nose congestion, No Mouth pain, No Mouth swelling, No Throat pain, No Throat swelling, No Other Cardiovascular: No Chest Pain, No Palpitations, No Orthopnea, No Paroxysmal Noc. Dyspnea, No Edema, No Lt Headedness, No Other Respiratory: No Cough, No Dry, No Shortness of breath, No SOB with excertion, No Wheezing, No Hemoptysis, No Pleuritic Pain, No Sputum, No Other Gastrointestinal: No Nausea, No Vomiting, No Abdominal Pain, No Diarrhea, No Constipation, No Melena, No Hematochezia, No Other Genitourinary: No Dysuria, No Frequency, No Incontinence, No Hematuria, No Retention, No Other Musculoskeletal: No other, No neck pain, No shoulder pain, No arm pain, No back pain, No hand pain, No leg pain, No foot pain Skin: No Rash, No Lesions, No Jaundice, No Bruising, No Other Objective Vitals Vital Signs Date Time Temp Pulse Resp B/P (MAP) Pulse Ox O2 Delivery O2 Flow Rate FiO2 08/29/24 16:37 98.3 77 18 104/52 (69) 100 98.3 08/29/24 07:34 Room Air* 0 21 Intake/Output Intake and Output 08/29/24 07:00 Intake Total 1900 ml Balance 1900 ml Intake Oral 1850 ml IV Total 50 ml # Voids 15 Exam Gen: in bed NAD Cvs: N S1/S2, RRR Resp: Creps Abd: Soft, NT, BS+ 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 Medications Current Medications Medications Dose Ordered Sig/Jet Route Start Time Stop Time Status Last Admin Dose Admin Sodium Chloride 10 ml Q8HR IV 08/27/24 22:00 08/29/24 14:00 10 ML Acetaminophen/ Hydrocodone Bitart 1 tab Q4HP PRN PO 08/27/24 17:45 Ondansetron HCl 4 mg Q4HP PRN IV 08/27/24 17:45 Docusate Sodium 100 mg BIDPRN PRN PO 08/27/24 17:45 Acetaminophen 650 mg Q6HP PRN PO 08/27/24 17:45 Nitroglycerin 0.4 mg Q5MINP PRN SL 08/27/24 17:45 Morphine Sulfate 2 mg Q30M PRN IV 08/27/24 17:45 Bumetanide 1 mg DAILY PO 08/28/24 10:00 08/29/24 10:00 1 MG Chlorthalidone 25 mg DAILY PO 08/28/24 10:00 08/29/24 10:00 25 MG Flecainide Acetate 50 mg DAILY PO 08/28/24 10:00 08/29/24 10:00 50 MG Nifedipine 30 mg DAILY PO 08/28/24 10:00 08/29/24 10:00 30 MG Patient Own Medication 1 tab DAILY PO 08/28/24 10:00 08/29/24 10:00 1 TAB Docusate Sodium 100 mg BID PO 08/27/24 22:00 08/29/24 10:00 100 MG Folic Acid 1 mg DAILY PO 08/28/24 10:00 08/29/24 10:00 1 MG Losartan Potassium 100 mg DAILY PO 08/28/24 10:00 08/29/24 10:00 100 MG Atorvastatin Calcium 20 mg HS PO 08/27/24 22:00 08/28/24 22:25 20 MG Ceftriaxone Sodium 50 ml @ 100 mls/hr DAILY@09 IV 08/27/24 18:04 08/29/24 09:00 100 MLS/HR Aspirin 81 mg DAILY PO 08/28/24 10:00 08/29/24 10:00 81 MG Gabapentin 300 mg Q8H PO 08/28/24 10:00 08/29/24 10:00 300 MG Baclofen 10 mg Q8H PO 08/28/24 10:00 08/29/24 10:00 10 MG Calcium/Vitamin D 1 tab TID PO 08/28/24 14:00 08/29/24 14:59 1 TAB Metoprolol Tartrate 25 mg TID PO 08/28/24 14:00 08/29/24 14:59 25 MG Doxycycline Monohydrate 100 mg Q12HR PO 08/28/24 22:00 08/29/24 10:00 100 MG Albuterol 2.5 mg Q6HWA [facility] 08/29/24 06:00 08/29/24 07:34 2.5 MG Ipratropium [place] 0.5 mg Q6HWA [facility] 08/29/24 06:00 08/29/24 07:34 0.5 MG Laboratory Results Laboratory Tests 08/29/24 06:03 Chemistry Test 08/29/24 06:03 Calcium Level 10.2 mg/dL (8.7-10.4) Magnesium Level 2.1 mg/dL (1.6-2.6) Urinalysis Test 08/28/24 13:30 Urine Color Yellow (Yellow) Urine Clarity Clear (Clear) Urine pH 6.0 (5.0-9.0) Urine Specific [place] 1.026 (1.001-1.035) Urine Protein 2+ (Negative) H Urine Ketones Trace (Negative) Urine Blood 1+ /uL (Negative) H Urine Nitrite Negative (Negative) Urine Bilirubin Negative (Negative) Urine Urobilinogen Normal mg/dL (Negative) Urine Leukocyte Esterase Negative /uL (Negative) Urine RBC 7 /hpf (0 - 3) Urine WBC 2 /hpf (0 - 3) Urine Squamous Epithelial Cells Few /hpf (<5) Urine Bacteria None seen /hpf (None Seen) Urine Mucus Few (None Seen) Urine Glucose Normal mg/dL (Normal) Microbiology Microbiology Date/Time Source Procedure Growth Status 08/28/24 13:30 Voided Urine Urine Culture - Preliminary Resulted Assessment/Plan Assessment/Plan Influenza Bronchitis- Unable to give TamiFlu. Doxy for now Acute respiratory failure- Titrate as tolerated HIV- Cont ARVT COPD exacerbation - bronchodilators Hypertension- Cont meds hyperlipidemia DDD Morbid Obesity SVT, history of - Cont meds. Cx Dr. Newman. Plan discussed with: Patient My Orders Orders - DAISHA LIRIANO MD Procedure Category Date Status Time Doxycycline Tablet PHA 08/28/24 In Process (Vibramycin Tablet) 22:00 Albuterol Medneb PHA 08/29/24 In Process (Ventolin Medneb) 06:00 Ipratropium Medneb PHA 08/29/24 In Process (Atrovent Medneb) 06:00 Date of Service: Aug 29, 2024 Billing Provider: DAISHA LIRIANO MD Common Visit Codes: [id number] INP/OBS CARE(HIGH) DAISHA LIRIANO MD Aug 29, 2024 17:54
[2024-08-29] MEDS: POTASSIUM CHL 20 Meq TABLET PO ONE (18:14)
--- NOTE | 2024-08-29 20:26 | DVHINCON2 ---
Date of service: Aug 28, 2024 Family History: Patient reports no known family medical history. Allergies: Coded Allergies: Iodine (Verified Allergy, Unknown, 07/17/20) Home Meds Active Scripts Tiotropium [place] Monohydrate (Spiriva Respimat) 2.5 Mcg/Act Spr, 2.5 MCG IN DAILY for 30 Days, #1 SPRAY Prov:NELIA FOX MD 11/07/22 Reported Medications Atorvastatin Calcium (ATORVASTATIN CALCIUM) 20 Mg Tab, 1 TAB PO HS 08/27/24 Flecainide Acetate (Flecainide Acetate) 50 Mg Tab, 1 TAB PO DAILY 08/27/24 Metoprolol Succinate (Metoprolol Succinate Er) 50 Mg Tab, 1 TAB PO DAILY 11/01/22 Spironolactone (Spironolactone) 25 Mg Tab, 1 TAB PO BID, #90 TAB 1 Refill 07/17/20 Dexlansoprazole (Dexilant) 60 Mg Cap, 60 MG PO DAILY, CAP 07/17/20 Bumetanide (Bumetanide) 1 Mg Tab, 1 MG PO DAILY for 30 Days, MG 07/17/20 Gabapentin (Gabapentin) 300 Mg Cap, 300 MG PO TID for 30 Days, MG 07/17/20 Chlorthalidone (Chlorthalidone) 25 Mg Tab, 25 MG PO DAILY, TAB 07/17/20 Ferrous Sulfate (Ferrous Sulfate) 325 Mg Tab, 325 MG PO TIDWM for 30 Days 07/17/20 Baclofen (Baclofen) 10 Mg Tab, 10 MG PO Q8HR for 30 Days, MG 07/17/20 Diphenhydramine Hcl (Banophen) 25 Mg Cap, 25 MG PO DAILY, CAP 07/17/20 Nifedipine (Nifedipine Er) 30 Mg Tab, 1 TAB PO DAILY, #90 TAB 1 Refill 07/17/20 Folic Acid (Folic Acid) 1 Mg Tab, 1 MG PO DAILY for 30 Days, MG 07/17/20 Telmisartan (Micardis) 80 Mg Tab, 1 TAB PO DAILY, #30 TAB 5 Refills 07/17/20 Issdxdxp-Pwomvnnotwnj-Iwmxhxfk (Triumeq 600-50-300 mg) 1 Tab Tab, 1 TAB PO DAILY, TAB 07/17/20 Calcium Carbonate-Cholecalcife (OYSCO 500+D) Chw, 1 TAB PO TID, TAB.CHEW 07/17/20 Naloxegol Oxalate (Movantik) 25 Mg Tab, 25 MG PO DAILY, TAB 07/17/20 Docusate Sodium (Docusate Sodium) 100 Mg Tab, 100 MG PO BIDP for 30 Days, MG 07/17/20 Discontinued Reported Medications Atorvastatin Calcium (ATORVASTATIN CALCIUM) 10 Mg Tab, 1 TAB PO DAILY, #30 TAB 5 Refills 07/17/20 Discontinued Scripts Ondansetron Odt 4MG Tab (ZOFRAN PO) 4 Mg Tb, 4 MG PO Q6HP PRN, #20 TAB ODT TAB-DISSOLVE IN MOUTH, THEN SWALLOW Prov:JONATHON BUSH PAC 10/12/23 Acetaminophen (Acetaminophen) 500 Mg Tab, 500 MG PO Q4HP PRN, #20 TAB Prov:JONATHON BUSH PAC 10/12/23 Levofloxacin (Levaquin 750 mg) 750 Mg Tab, 1 TAB PO DAILY for 9 Days, #9 TAB Prov:JONATHON BUSH PAC 10/12/23 Fluconazole (Fluconazole) 200 Mg Tab, 1 TAB PO DAILY for 12 Days, #12 TAB Prov:NELIA FOX MD 11/07/22 Current Medications Current Medications Medications (Trade) Dose Ordered Sig/Jet Route PRN Reason Start Time Stop Time Status Last Admin Doxycycline Monohydrate (Vibramycin Tablet) 100 mg Q12HR PO 08/28/24 22:00 08/29/24 10:00 Albuterol (Ventolin Medneb) 2.5 mg Q6HWA [facility] 08/29/24 06:00 08/29/24 18:27 Ipratropium [place] (Atrovent Medneb) 0.5 mg Q6HWA [facility] 08/29/24 06:00 08/29/24 18:27 Vital Signs Vital Signs Date Time Temp Pulse Resp B/P (MAP) Pulse Ox O2 Delivery O2 Flow Rate FiO2 08/29/24 18:27 74 18 98 08/29/24 18:27 Nasal Cannula 2.0 08/29/24 18:27 28 08/29/24 16:37 98.3 104/52 (69) 98.3 Labs/Diagnostic Data Labs Test 08/29/24 06:03 08/28/24 13:30 08/28/24 04:20 08/28/24 00:26 Range/Units White Blood Count 5.3 # 4.4-10.8 10^3/uL Red Blood Count 4.47 L 4.5-5.90 10^6/uL Hemoglobin 14.4 13.5-17.5 g/dL Hematocrit 41.8 41.0-53.0 % Mean Corpuscular Volume 93.7 80.0-100.0 fL Mean Corpuscular Hemoglobin 32.2 H 28.0-32.0 pg Mean Corpuscular Hemoglobin Concent 34.4 32.0-36.0 g/dL Red Cell Distribution Width 13.8 11.8-14.3 % Platelet Count 131 L 140-450 10^3/uL Mean Platelet Volume 12.1 H 6.9-10.8 fL Neutrophils (%) (Auto) 53.1 37.0-80.0 % Lymphocytes (%) (Auto) 31.8 10.0-50.0 % Monocytes (%) (Auto) 13.5 H 0.0-12.0 % Eosinophils (%) (Auto) 0.9 0.0-7.0 % Basophils (%) (Auto) 0.7 0.0-2.0 % Neutrophils # (Auto) 2.8 1.6-8.6 10 ^3/uL Lymphocytes # (Auto) 1.7 0.4-5.4 10 ^3/uL Monocytes # (Auto) 0.7 0-1.3 10 ^3/uL Eosinophils # (Auto) 0 0-0.8 10 ^3/uL Basophils # (Auto) 0 0-0.2 10 ^3/uL Nucleated Red Blood Cells 0.2 % Platelet Estimate Decreased Large Platelets Few Giant Platelets Few Sodium Level 137 136-145 mmol/L Potassium Level 3.5 3.5-5.1 mmol/L Chloride Level 102 98-107 mmol/L Carbon Dioxide Level 26 20-31 mmol/L Anion Gap 9 5-15 Blood Urea Nitrogen 14 9-23 mg/dL Creatinine 1.01 0.700-1.30 mg/dL Glomerular Filtration Rate Calc 83 >90 mL/min BUN/Creatinine Ratio 13.9 10.0-20.0 Serum Glucose 105 74-106 mg/dL Calcium Level 10.2 8.7-10.4 mg/dL Magnesium Level 2.1 1.6-2.6 mg/dL Urine Color Yellow Yellow Urine Clarity Clear Clear Urine pH 6.0 5.0-9.0 Urine Specific [place] 1.026 1.001-1.035 Urine Protein 2+ H Negative Urine Ketones Trace Negative Urine Blood 1+ H Negative /uL Urine Nitrite Negative Negative Urine Bilirubin Negative Negative Urine Urobilinogen Normal Negative mg/dL Urine Leukocyte Esterase Negative Negative /uL Urine RBC 7 0 - 3 /hpf Urine WBC 2 0 - 3 /hpf Urine Squamous Epithelial Cells Few <5 /hpf Urine Bacteria None seen None Seen /hpf Urine Mucus Few None Seen Urine Glucose Normal Normal mg/dL Differential Total Cells Counted 100.0 100 Neutrophils % (Manual) 69 37.0-80.0 Band Neutrophils % (Manual) 0 Lymphocytes % (Manual) 17 10.0-50.0 Monocytes % (Manual) 13 H 0-12 Eosinophils % (Manual) 0 0-7 Basophils % (Manual) 1 0.0-2.0 Metamyelocytes % (manual) 0 Myelocytes % (Manual) 0 Promyelocytes % (Manual) 0 Blast Cells % (Manual) 0 Reactive Lymphocytes 0 Total Bilirubin 0.6 0.2-1.0 mg/dL Aspartate Amino Transferase (AST) 39 13-40 U/L Alanine Aminotransferase (ALT) 22 7-40 U/L Alkaline Phosphatase 69 46-116 U/L Total Protein 7.1 5.7-8.2 g/dL Albumin 4.1 3.2-4.8 g/dL Influenza Type A Antigen Positive Negative Influenza Type B Antigen Negative Negative SARS-CoV-2 Antigen (Rapid) Negative NEGATIVE Test 08/27/24 18:30 08/27/24 14:26 Range/Units Troponin I High Sensitivity 18 </=54 ng/L B-Type Natriuretic Peptide 63.95 0-100 pg/mL Microbiology Date/Time Source Procedure Growth Status 08/28/24 13:30 Voided Urine Urine Culture - Preliminary Resulted Problems(with codes): (1) HIV (human immunodeficiency virus infection) (2) Influenza A (3) Altered mental status Plan/Recommendation ASSESSMENT AND PLAN: ID Problem List: - Shortness of breath - Tachycardia - Confusion - Viral pneumonia (Influenza positive) - HIV infection (controlled) - Hypertension - Hyperlipidemia - Arthritis - Chronic back pain COPD - Stroke - Cancer (unspecified type) - Allergy to iodine Assessment This is a 63-year-old male with a past medical history of hypertension, hyperlipidemia, arthritis, chronic back pain, COPD, stroke, cancer (type unspecified), and controlled HIV infection (CD4 count 810) on Triumeq, who presents with worsening shortness of breath over the last week. He reports chills and a sore throat; everyone at home has been sick recently. He was seen by his test case developer, who noted an elevated heart rate and advised further evaluation. He denies starting any new medications or antibiotics. On admission, he is febrile (99.2?F), tachycardic (HR 120 bpm), hypotensive (BP 104/52 mmHg), somewhat confused, and disoriented, with dyspnea on exertion. Laboratory studies are notable for a positive influenza test and stable troponins at 15, 17, and 18. Chest X-ray shows no acute cardiopulmonary disease. Plan: - Viral pneumonia (Influenza positive): - Continue doxycycline and ceftriaxone for community-acquired pneumonia coverage. - Initiate Tamiflu 75mg PO BID for 5 days. - Hold Triumeq during Tamiflu therapy to avoid drug interactions. - Resume Triumeq after completion of Tamiflu course. - Screen for hepatitis B to assess for any impact on HIV regimen. - Obtain sputum culture and procalcitonin level. - Altered mental status: - Monitor mental status closely. - Evaluate for potential causes (e.g., hypoxia, infection, medication effects). - Tachycardia: - Defer further evaluation to cardiology team. - Monitor vital signs regularly. COPD: - Continue supplemental oxygen at 2?L/min via nasal cannula. - Monitor oxygen saturation. - Smoking cessation: - Provide counseling on quitting smoking. - Allergy: - Document allergy to iodine; avoid iodine-containing medications and contrast agents. Isolation Precautions: Standard History: The patient's chart and medications were reviewed in detail, and the patient was seen and examined. History obtained from: Patient Min Marquez is a 63-year-old male with a past medical history of hypertension, hyperlipidemia, arthritis, chronic back pain, COPD, stroke, cancer (type unspecified), and controlled HIV infection (CD4 count 810) on Triumeq, who presents with worsening shortness of breath over the last week. He reports chills and a sore throat. Everyone at home has been sick lately. He was seen by his test case developer, who noted his heart rate was elevated and advised him to come for further evaluation. He denies starting any new medications or antibiotics. He is allergic to iodine. Review of Systems: A complete 10-system review of systems was completed and negative except as noted in the HPI or here. ROS: - CONSTITUTIONAL: Reports chills; denies weight loss and fever. - HEENT: Reports sore throat; denies changes in vision and hearing. - RESPIRATORY: Reports worsening shortness of breath; denies cough. - CARDIOVASCULAR: Reports tachycardia; denies chest pain and palpitations. - GASTROINTESTINAL: Denies abdominal pain, nausea, vomiting, and diarrhea. - GENITOURINARY: Denies dysuria and urinary frequency. - MUSCULOSKELETAL: Reports chronic back pain and arthritis; denies new joint pain or myalgias. - SKIN: Denies rash and pruritus. - NEUROLOGICAL: Reports confusion and disorientation; denies headache and syncope. - PSYCHIATRIC: Denies recent changes in mood; denies anxiety and depression. Past Medical History: Diagnosis Date - Hypertension - Hyperlipidemia - Arthritis - Chronic back pain COPD - Stroke - Cancer (type unspecified) - HIV infection (CD4 count 810), controlled on Triumeq Past Surgical History: - Open-heart surgery for cardiac mass. Home Medications: Prior to admission medications: - Triumeq (abacavir/dolutegravir/lamivudine) tablet: Take 1 tablet by mouth daily. Allergies: - Iodine: Reaction unspecified. Family History: History reviewed. No pertinent family history available. Social History: Socioeconomic History - Living situation: Lives with family. - Tobacco use: Smokes less than one pack per day. - Alcohol use: Occasional. - Drug use: Smokes marijuana. No additional social determinants of health noted. Objective: Vital Signs on Arrival: Temp: 99.2?F (37.3?C)?BP: 127/79?mmHg?Pulse: 120?bpm?Resp: 20?SpO?: Not specified Most Recent Vital Signs: Temp: Not specified?BP: 104/52?mmHg?Pulse: 95?bpm?Resp: Not specified?SpO?: On 2?L/min nasal cannula Admission Weight: Weight: Not provided Physical Exam: General:?NAD. Somewhat confused and disoriented. Neck:?Supple. No masses. HEENT:?PERRL. Normal lids and conjunctiva. Moist mucous membranes. Oropharynx with mild erythema; no lesions or exudates. Normal appearance of the external nose and ears. Heart:?Tachycardic, regular rhythm. No murmur. No lower extremity edema. Lungs:?Increased respiratory effort. Clear to auscultation bilaterally. No wheezes. No crackles. Abdomen:?Soft. Non-tender. Non-distended. No masses or abdominal hernia. Musculoskeletal:?No digital cyanosis. Normal strength and tone in all 4 limbs. Skin:?Warm and dry; no rashes. Neuro:?Alert but somewhat confused and disoriented. No facial droop or slurred speech. Extraocular movements intact. Sensation intact to soft touch in all 4 limbs. Psych:?Appropriate mood. Full affect. Oriented to person but disoriented to place and time. Lines: Active Lines - Peripheral IV Line?Date/Time placed: [Not specified]?Location: [Not specified]?Gauge: [Not specified] Diagnostic Studies: Available diagnostic studies were reviewed personally. Significant relevant results and findings are outlined below or addressed in the Assessment and Plan above. Laboratory Data: WBC: 7.5??10/L - Hemoglobin: 13.8?g/dL - Platelets: 146??10/L - Sodium: 137?mEq/L - BUN: 13?mg/dL - Creatinine: 1.15?mg/dL AST: 39?U/L ALT: 22?U/L - Alkaline Phosphatase: 69?U/L - Troponins: Stable at 15, 17, and 18 [units not specified] - Influenza test: Positive Pertinent Imaging: - Chest X-ray: - Impression: - No acute cardiopulmonary disease. Electronically signed by: Nahed Christensen MD, [Date] Plan discussed with: Patient NAHED CHRISTENSEN MD Aug 29, 2024 20:25
[2024-08-29] MEDS: OSELTAMIVIR 75 MG CAP PO SCH (21:59)
--- NOTE | 2024-08-29 22:27 | DVHPN2 ---
Consult Progress Note Date Seen: Aug 29, 2024 Subjective Patient reports: Other (oxygen is down to 2 liters nasal canula , alert and aware. has coase rhoni in lungs bilaterally ) Objective vital signs Vital Sign Date Time Temp Pulse Resp B/P (MAP) Pulse Ox O2 Delivery O2 Flow Rate FiO2 08/29/24 21:59 98 130/81 08/29/24 21:00 98.1 18 93 98.1 08/29/24 20:10 Nasal Cannula* 3 32 Total Intake and Output 08/28/24 08/28/24 08/29/24 15:00 23:00 07:00 Intake Total 50 ml 800 ml 1050 ml Balance 50 ml 800 ml 1050 ml medications Current Medications Medications Dose Ordered Sig/Jet Route Start Time Stop Time Status Last Admin Dose Admin Sodium Chloride 10 ml Q8HR IV 08/27/24 22:00 08/29/24 22:00 10 ML Acetaminophen/ Hydrocodone Bitart 1 tab Q4HP PRN PO 08/27/24 17:45 Ondansetron HCl 4 mg Q4HP PRN IV 08/27/24 17:45 Docusate Sodium 100 mg BIDPRN PRN PO 08/27/24 17:45 Acetaminophen 650 mg Q6HP PRN PO 08/27/24 17:45 Nitroglycerin 0.4 mg Q5MINP PRN SL 08/27/24 17:45 Morphine Sulfate 2 mg Q30M PRN IV 08/27/24 17:45 Bumetanide 1 mg DAILY PO 08/28/24 10:00 08/29/24 10:00 1 MG Chlorthalidone 25 mg DAILY PO 08/28/24 10:00 08/29/24 10:00 25 MG Flecainide Acetate 50 mg DAILY PO 08/28/24 10:00 08/29/24 10:00 50 MG Nifedipine 30 mg DAILY PO 08/28/24 10:00 08/29/24 10:00 30 MG Docusate Sodium 100 mg BID PO 08/27/24 22:00 08/29/24 10:00 100 MG Folic Acid 1 mg DAILY PO 08/28/24 10:00 08/29/24 10:00 1 MG Losartan Potassium 100 mg DAILY PO 08/28/24 10:00 08/29/24 10:00 100 MG Atorvastatin Calcium 20 mg HS PO 08/27/24 22:00 08/29/24 21:59 20 MG Ceftriaxone Sodium 50 ml @ 100 mls/hr DAILY@09 IV 08/27/24 18:04 08/29/24 09:00 100 MLS/HR Aspirin 81 mg DAILY PO 08/28/24 10:00 08/29/24 10:00 81 MG Gabapentin 300 mg Q8H PO 08/28/24 10:00 08/29/24 18:15 300 MG Baclofen 10 mg Q8H PO 08/28/24 10:00 08/29/24 18:14 10 MG Calcium/Vitamin D 1 tab TID PO 08/28/24 14:00 08/29/24 21:59 1 TAB Metoprolol Tartrate 25 mg TID PO 08/28/24 14:00 08/29/24 21:59 25 MG Doxycycline Monohydrate 100 mg Q12HR PO 08/28/24 22:00 08/29/24 21:59 100 MG Albuterol 2.5 mg Q6HWA [facility] 08/29/24 06:00 08/29/24 18:27 2.5 MG Ipratropium [place] 0.5 mg Q6HWA [facility] 08/29/24 06:00 08/29/24 18:27 0.5 MG Oseltamivir Phosphate 75 mg Q12HR PO 08/29/24 22:00 09/03/24 21:59 08/29/24 21:59 75 MG Physical Exam: General:?NAD. Somewhat confused and disoriented. Neck:?Supple. No masses. HEENT:?PERRL. Normal lids and conjunctiva. Moist mucous membranes. Oropharynx with mild erythema; no lesions or exudates. Normal appearance of the external nose and ears. Heart:?Tachycardic, regular rhythm. No murmur. No lower extremity edema. Lungs:?Increased respiratory effort. Clear to auscultation bilaterally. No wheezes. No crackles. Abdomen:?Soft. Non-tender. Non-distended. No masses or abdominal hernia. Musculoskeletal:?No digital cyanosis. Normal strength and tone in all 4 limbs. Skin:?Warm and dry; no rashes. Neuro:?Alert but somewhat confused and disoriented. No facial droop or slurred speech. Extraocular movements intact. Sensation intact to soft touch in all 4 limbs. Psych:?Appropriate mood. Full affect. Oriented to person but disoriented to place and time. laboratory and microbiology Laboratory Tests 08/29/24 06:03 Test 08/29/24 06:03 Range/Units Serum Glucose 105 74-106 mg/dL Problem List/Assessment/Plan Problems(with codes): (1) Acute on chronic diastolic heart failure (2) Bilateral pulmonary infiltrates on chest x-ray (3) Insect bite (4) Cellulitis of left forearm (5) Esophageal candidiasis (6) Urinary tract infection (7) Acute coronary syndrome (8) Altered mental status (9) HIV (human immunodeficiency virus infection) (10) Influenza A Problem List/Assessment/Plan ID Problem List: - Shortness of breath - Tachycardia - Confusion - Viral pneumonia (Influenza positive) - HIV infection (controlled) - Hypertension - Hyperlipidemia - Arthritis - Chronic back pain COPD - Stroke - Cancer (unspecified type) - Allergy to iodine Assessment This is a 63-year-old male with a past medical history of hypertension, hyperlipidemia, arthritis, chronic back pain, COPD, stroke, cancer (type unspecified), and controlled HIV infection (CD4 count 810) on Triumeq, who presents with worsening shortness of breath over the last week. He reports chills and a sore throat; everyone at home has been sick recently. He was seen by his nursing home admissions director, who noted an elevated heart rate and advised further evaluation. He denies starting any new medications or antibiotics. On admission, he is febrile (99.2?F), tachycardic (HR 120 bpm), hypotensive (BP 104/52 mmHg), somewhat confused, and disoriented, with dyspnea on exertion. Laboratory studies are notable for a positive influenza test and stable troponins at 15, 17, and 18. Chest X-ray shows no acute cardiopulmonary disease. 08/29: Patients HIV is well controlled , confirmed by [facility] labs by Dr Michel in august Plan: - Have patient follow up with Dr Michel in 2 weeks after discharge - Viral pneumonia (Influenza positive): - Continue doxycycline and ceftriaxone for community-acquired pneumonia coverage. - Initiate Tamiflu 75mg PO BID for 5 days. - Hold Triumeq during Tamiflu therapy to avoid drug interactions. - Resume Triumeq after completion of Tamiflu course. - Screen for hepatitis B to assess for any impact on HIV regimen. - Obtain sputum culture and procalcitonin level. - Altered mental status: - Monitor mental status closely. - Evaluate for potential causes (e.g., hypoxia, infection, medication effects). - Tachycardia: - Defer further evaluation to cardiology team. - Monitor vital signs regularly. COPD: - Continue supplemental oxygen at 2?L/min via nasal cannula. - Monitor oxygen saturation. - Smoking cessation: - Provide counseling on quitting smoking. - Allergy: - Document allergy to iodine; avoid iodine-containing medications and contrast agents. Plan discussed with: NAHED Mendez MD Aug 29, 2024 22:27
[2024-08-30] VITALS (14 sets, daily range): BP systolic 87–108; BP diastolic 53–73; PULSE 57–123; RESP 16–20; TEMP 98–99.5; O2SAT 91–100
--- NOTE | 2024-08-30 06:10 | DVHPN2 ---
Progress Note - Dictate Date Seen: Aug 30, 2024 Medical Necessity Reason Pt with a Central, PICC or Fol: No vital signs Vital Sign Date Time Temp Pulse Resp B/P (MAP) Pulse Ox O2 Delivery O2 Flow Rate FiO2 08/30/24 05:48 88 100/57 08/30/24 05:00 98.2 19 95 98.2 08/29/24 20:10 Nasal Cannula* 3 32 Total Intake and Output 08/29/24 08/29/24 08/30/24 15:00 23:00 07:00 Intake Total 50 ml 800 ml 1050 ml Balance 50 ml 800 ml 1050 ml medications Current Medications Medications Dose Ordered Sig/Jet Route Start Time Stop Time Status Last Admin Dose Admin Sodium Chloride 10 ml Q8HR IV 08/27/24 22:00 08/30/24 05:48 10 ML Acetaminophen/ Hydrocodone Bitart 1 tab Q4HP PRN PO 08/27/24 17:45 Ondansetron HCl 4 mg Q4HP PRN IV 08/27/24 17:45 Docusate Sodium 100 mg BIDPRN PRN PO 08/27/24 17:45 Acetaminophen 650 mg Q6HP PRN PO 08/27/24 17:45 Nitroglycerin 0.4 mg Q5MINP PRN SL 08/27/24 17:45 Morphine Sulfate 2 mg Q30M PRN IV 08/27/24 17:45 Bumetanide 1 mg DAILY PO 08/28/24 10:00 08/29/24 10:00 1 MG Chlorthalidone 25 mg DAILY PO 08/28/24 10:00 08/29/24 10:00 25 MG Flecainide Acetate 50 mg DAILY PO 08/28/24 10:00 08/29/24 10:00 50 MG Nifedipine 30 mg DAILY PO 08/28/24 10:00 08/29/24 10:00 30 MG Docusate Sodium 100 mg BID PO 08/27/24 22:00 08/29/24 10:00 100 MG Folic Acid 1 mg DAILY PO 08/28/24 10:00 08/29/24 10:00 1 MG Losartan Potassium 100 mg DAILY PO 08/28/24 10:00 08/29/24 10:00 100 MG Atorvastatin Calcium 20 mg HS PO 08/27/24 22:00 08/29/24 21:59 20 MG Ceftriaxone Sodium 50 ml @ 100 mls/hr DAILY@09 IV 08/27/24 18:04 08/29/24 09:00 100 MLS/HR Aspirin 81 mg DAILY PO 08/28/24 10:00 08/29/24 10:00 81 MG Gabapentin 300 mg Q8H PO 08/28/24 10:00 08/30/24 02:17 300 MG Baclofen 10 mg Q8H PO 08/28/24 10:00 08/30/24 02:17 10 MG Calcium/Vitamin D 1 tab TID PO 08/28/24 14:00 08/30/24 05:49 1 TAB Metoprolol Tartrate 25 mg TID PO 08/28/24 14:00 08/29/24 21:59 25 MG Doxycycline Monohydrate 100 mg Q12HR PO 08/28/24 22:00 08/29/24 21:59 100 MG Albuterol 2.5 mg Q6HWA [facility] 08/29/24 06:00 08/29/24 18:27 2.5 MG Ipratropium [place] 0.5 mg Q6HWA [facility] 08/29/24 06:00 08/29/24 18:27 0.5 MG Oseltamivir Phosphate 75 mg Q12HR PO 08/29/24 22:00 09/03/24 21:59 08/29/24 21:59 75 MG laboratory and microbiology Laboratory Tests 08/29/24 06:03 Test 08/29/24 06:03 Range/Units Serum Glucose 105 74-106 mg/dL Assessment/Plan Patient is 73 year old male who presented with few days of shortness of breath accompanied with chills, sore throat and palpitations. Reportedly all the family are sick. He also was experiencing more than usual palpitations. Cardiology is involved for cardiac aspects of care. Patient is known to or practice from outside. He recently was fond to have frequent SVT and was prescribed Flecainide for it. His PMH includes controlled HIV. Denies LOC. Denies dizziness. Denies chest pain. NAD, lying in bed flat. Is short of breath and is on nasal canula O2 therapy. Mucosa is wet and pink. no Carotid bruit. No cervical lymphadenopathy. No goiter. Not using accessory muscles of breathing. Healed mid sternal scar is seen. Scattered rhonchi in lungs is heard. Cardiac: RR, tachycardia is present. Systolic murmur, 2 out of 6 in apex. Abdomen is soft, no gross mass, no gross hepatomegaly. Ext: no edema. DP is 2+ bilateral PMH includes: COD, old CVA, hypertension, hyperlipidemia, old prostate cancer, DJD, LBP, DDD (lumbar spine), Morbid obesity, History of HIV (goes to [facility] for its management) and history of hernia repair. Has history of heart surgery to remove a benign mass (?) years ago. Denies CABG. Has been recently diagnosed with frequent SVT and was started on Flecainide. Smokes cigarette. Occasionally uses Marijuana. Drinks alcohol regularly. [facility] reported LVH, EF of 60%, Dilated Aortic root, Left Campus enlargement and mild TR Echocardiogram of February/2024 (performed in office) revealed: borderline concentric left ventricular hypertrophy, LVEF of 60 to 65%, normal diastole, Mild to moderate TR and RVSP of 28 mmHg Nuclear stress test of (performed in office): normal perfusion and EF of 63% WBC: 7.5 - 7.1 - 5.3 Hgb: 13.8 - 13.2 - 14.4 Creat: 1.13 - 1.15 - 1.01 K: 3.3 - 3.0 - 3.5 Trop (high sensitive): 15 - 17 -18 BNP: 63.95 Influenza type A: Positive Chest xry reported: FINDINGS: Lines and Tubes: None Lungs: No focal consolidation. Pleura: No effusion. No pneumothorax. Cardiomediastinal contours:Within normal limits. Midline sternotomy wires. Pulmonary vasculature: Within normal limits. Bones: No acute osseous abnormality. IMPRESSION: 1. No acute cardiopulmonary disease. EKG revealed sinus tachycardia, LVH and no ST T changes. Tele reveals sinus tachycardia Echocardiogram reported: Left ventricle: Left ventricle was normal-sized with normal systolic function. There was no gross wall motion abnormality. LVEF of 61%. Right ventricle was normal-sized with normal systolic function. Both atria were normal-sized. Aortic valve was not well visualized. There was no aortic insufficiency/stenosis. There was trivial mitral/tricuspid regurgitation. Pulmonary valve was not well visualized. As there was no good tricuspid regurgitation jet, right ventricular systolic pressure could not be estimated. There was no echocardiographic evidence for pulmonary hypertension. There was no pericardial effusion. Patient is 63 year old male who presented with fever, shortness of breath, chills, sore throat. He is found to have Influenzae. Does have sepsis. Findings question flu related Bronchitis and sepsis. Tachycardia at this point is assessed to be secondary to sepsis. Recognizing history of HIV, patient is considered immunocompromised. Acute coronary syndrome is not considered. ID is on the case. Influenza Bronchitis Viral pneumonia Acute respiratory failure Sepsis History of HIV COPD exacerbation Hypertension hyperlipidemia DDD Morbid Obesity SVT, history of Cardiac suggestion for management: Manage on Tele Follow up electrolytes and kidney function test and correct abnormalities. Keep potassium above 4 and Magnesium above 2 Metoprolol Tartrate at 25 mg PO TID Management of Flu/sepsis/Bronchitis as per primary team/pulmonary/ID Tamiflu as per ID Further evaluation and management depends on the above and clinical course A total of 55 minutes was spent reviewing the patient record, examining the patient, making a diagnostic and therapeutic plan, discussing this plan with medical personnel, following up on diagnostic studies and following the patient for clinical stability excluding any and all procedures. At least 50% of this time was spent in direct, [id number] contact. Thank you for allowing me to participate in this patient's care. Further recommendations will depend on patient's clinical course. Please do not hesitate to contact me if you have any questions or concerns. This medical document was created using electronic medical record system with [employer] computerized dictation system. Although this document has been carefully reviewed, there may still be some phonetic and typographical errors. These areas are purely typographical due to the imperfection of the software programs, and do not reflect any compromise in the patient's medical care. Plan discussed with: Patient, Other (nurse) JONATHON MENDOZA MD Aug 30, 2024 06:10
[2024-08-30 08:46] LABS: Chloride 102 mmol/L (98-107); Sodium 136 mmol/L (136-145)
[2024-08-30 08:47] LABS: Anion Gap 9 (5-15); Carbon Dioxide 25 mmol/L (20-31)
[2024-08-30 08:48] LABS: Calcium 9.7 mg/dL (8.7-10.4)
[2024-08-30 08:49] LABS: Potassium 3.2 mmol/L (3.5-5.1)
[2024-08-30 08:52] LABS: BUN/Creatinine Ratio 18.5 (10.0-20.0); Blood Urea Nitrogen 22 mg/dL (9-23); Glucose 94 mg/dL (74-106)
[2024-08-30] MEDS: POTASSIUM CHL 20 Meq TABLET PO ONE (12:17)
--- NOTE | 2024-08-30 14:24 | DVHPN2 ---
Subjective Seen and examined at bedside. Cont Meds. Titrate oxygen down . Repeat CXR, ABG pending Changes from previous H/P or p: No Changes Eyes: No Pain, No Vision change, No Conjunctivae inflammation, No Eyelid inflammation, No Other, No Redness ENT: No Ear pain, No Ear discharge, No Nose pain, No Nose discharge, No Nose congestion, No Mouth pain, No Mouth swelling, No Throat pain, No Throat swelling, No Other Cardiovascular: No Chest Pain, No Palpitations, No Orthopnea, No Paroxysmal Noc. Dyspnea, No Edema, No Lt Headedness, No Other Respiratory: No Cough, No Dry, No Shortness of breath, No SOB with excertion, No Wheezing, No Hemoptysis, No Pleuritic Pain, No Sputum, No Other Gastrointestinal: No Nausea, No Vomiting, No Abdominal Pain, No Diarrhea, No Constipation, No Melena, No Hematochezia, No Other Genitourinary: No Dysuria, No Frequency, No Incontinence, No Hematuria, No Retention, No Other Musculoskeletal: No other, No neck pain, No shoulder pain, No arm pain, No back pain, No hand pain, No leg pain, No foot pain Skin: No Rash, No Lesions, No Jaundice, No Bruising, No Other Objective Vitals Vital Signs Date Time Temp Pulse Resp B/P (MAP) Pulse Ox O2 Delivery O2 Flow Rate FiO2 08/30/24 14:00 57 106/73 08/30/24 12:37 99.0 20 96 99.0 08/30/24 11:48 Nasal Cannula* 2 28 Intake/Output Intake and Output 08/30/24 07:00 Intake Total 1900 ml Balance 1900 ml Intake Oral 1850 ml IV Total 50 ml # Voids 14 # Bowel Movements 1 Exam Gen: in bed NAD Cvs: N S1/S2, RRR Resp: BLAE Abd: Soft, NT, BS+ Track Manager: AAO x 4 Medications Current Medications Medications Dose Ordered Sig/Jet Route Start Time Stop Time Status Last Admin Dose Admin Sodium Chloride 10 ml Q8HR IV 08/27/24 22:00 08/30/24 12:47 10 ML Acetaminophen/ Hydrocodone Bitart 1 tab Q4HP PRN PO 08/27/24 17:45 Ondansetron HCl 4 mg Q4HP PRN IV 08/27/24 17:45 Docusate Sodium 100 mg BIDPRN PRN PO 08/27/24 17:45 Acetaminophen 650 mg Q6HP PRN PO 08/27/24 17:45 Nitroglycerin 0.4 mg Q5MINP PRN SL 08/27/24 17:45 Morphine Sulfate 2 mg Q30M PRN IV 08/27/24 17:45 Bumetanide 1 mg DAILY PO 08/28/24 10:00 08/29/24 10:00 1 MG Chlorthalidone 25 mg DAILY PO 08/28/24 10:00 08/29/24 10:00 25 MG Flecainide Acetate 50 mg DAILY PO 08/28/24 10:00 08/30/24 10:04 50 MG Nifedipine 30 mg DAILY PO 08/28/24 10:00 08/29/24 10:00 30 MG Docusate Sodium 100 mg BID PO 08/27/24 22:00 08/30/24 10:04 100 MG Folic Acid 1 mg DAILY PO 08/28/24 10:00 08/30/24 10:05 1 MG Losartan Potassium 100 mg DAILY PO 08/28/24 10:00 08/29/24 10:00 100 MG Atorvastatin Calcium 20 mg HS PO 08/27/24 22:00 08/29/24 21:59 20 MG Ceftriaxone Sodium 50 ml @ 100 mls/hr DAILY@09 IV 08/27/24 18:04 08/30/24 10:04 100 MLS/HR Aspirin 81 mg DAILY PO 08/28/24 10:00 08/30/24 10:04 81 MG Gabapentin 300 mg Q8H PO 08/28/24 10:00 08/30/24 10:05 300 MG Baclofen 10 mg Q8H PO 08/28/24 10:00 08/30/24 02:17 10 MG Calcium/Vitamin D 1 tab TID PO 08/28/24 14:00 08/30/24 14:07 1 TAB Metoprolol Tartrate 25 mg TID PO 08/28/24 14:00 08/29/24 21:59 25 MG Doxycycline Monohydrate 100 mg Q12HR PO 08/28/24 22:00 08/30/24 10:05 100 MG Albuterol 2.5 mg Q6HWA [facility] 08/29/24 06:00 08/30/24 11:48 2.5 MG Ipratropium [place] 0.5 mg Q6HWA [facility] 08/29/24 06:00 08/30/24 11:48 0.5 MG Oseltamivir Phosphate 75 mg Q12HR PO 08/29/24 22:00 09/03/24 21:59 08/30/24 10:05 75 MG Laboratory Results Laboratory Tests 08/29/24 06:03 08/30/24 08:06 Chemistry Test 08/30/24 08:06 Calcium Level 9.7 mg/dL (8.7-10.4) Cardiac Markers Test 08/30/24 08:06 B-Type Natriuretic Peptide 8.73 pg/mL (0-100) Urinalysis Test 08/28/24 13:30 Urine Color Yellow (Yellow) Urine Clarity Clear (Clear) Urine pH 6.0 (5.0-9.0) Urine Specific [place] 1.026 (1.001-1.035) Urine Protein 2+ (Negative) H Urine Ketones Trace (Negative) Urine Blood 1+ /uL (Negative) H Urine Nitrite Negative (Negative) Urine Bilirubin Negative (Negative) Urine Urobilinogen Normal mg/dL (Negative) Urine Leukocyte Esterase Negative /uL (Negative) Urine RBC 7 /hpf (0 - 3) Urine WBC 2 /hpf (0 - 3) Urine Squamous Epithelial Cells Few /hpf (<5) Urine Bacteria None seen /hpf (None Seen) Urine Mucus Few (None Seen) Urine Glucose Normal mg/dL (Normal) Microbiology Microbiology Date/Time Source Procedure Growth Status 08/28/24 13:30 Voided Urine Urine Culture - Preliminary Resulted Assessment/Plan Assessment/Plan Influenza Bronchitis- TamiFlu. Doxy for now Acute respiratory failure- Titrate as tolerated HIV- Cont ARVT COPD exacerbation - bronchodilators Hypertension- Cont meds hyperlipidemia DDD Morbid Obesity SVT, history of - Cont meds. Cx Dr. Newman. Plan discussed with: Patient My Orders Orders - DAISHA LIRIANO MD Procedure Category Date Status Time Chest Two Views XY 08/30/24 Logged Routine 14:21 Communication Order ORDERS 08/30/24 Transmitted 14:21 Date of Service: Aug 30, 2024 Billing Provider: DAISHA LIRIANO MD Common Visit Codes: [id number] INP/OBS CARE(HIGH) DAISHA LIRIANO MD Aug 30, 2024 14:24
--- NOTE | 2024-08-30 15:28 | DVH ---
EXAM: XY CHEST TWO VIEWS ROUTINE CLINICAL HISTORY: SOB COMPARISON: XY CHEST TWO VIEWS ROUTINE on DOS: 08/27/24, XY CHEST TWO VIEWS ROUTINE on DOS: 11/03/22 TECHNIQUE: Frontal and lateral view of the chest was obtained FINDINGS: Lines and Tubes: None Lungs: No focal consolidation. Pleura: No effusion. No pneumothorax. Cardiomediastinal contours: Mild cardiomegaly. Pulmonary vasculature: Within normal limits. Bones: No acute osseous abnormality. Prior sternotomy. IMPRESSION: 1. No acute cardiopulmonary disease. 2. Mild cardiomegaly. HS:Y
[2024-08-30 15:51] LABS: Base Excess 1.7 mmol/L (-2.0-3.0)
--- NOTE | 2024-08-30 23:15 | DVHPN2 ---
Consult Progress Note Date Seen: Aug 30, 2024 Subjective Patient reports: Other (is on room air , has a slight cough and is mentating back at baseline . not having any diarrhea , just some upper respiratory congestion ) Objective vital signs Vital Sign Date Time Temp Pulse Resp B/P (MAP) Pulse Ox O2 Delivery O2 Flow Rate FiO2 08/30/24 21:31 90/50 08/30/24 20:00 Nasal Cannula* 3 32 08/30/24 18:57 81 16 100 08/30/24 16:38 98.1 98.1 Total Intake and Output 08/29/24 08/29/24 08/30/24 15:00 23:00 07:00 Intake Total 50 ml 800 ml 1050 ml Balance 50 ml 800 ml 1050 ml medications Current Medications Medications Dose Ordered Sig/Jet Route Start Time Stop Time Status Last Admin Dose Admin Sodium Chloride 10 ml Q8HR IV 08/27/24 22:00 08/30/24 21:31 10 ML Acetaminophen/ Hydrocodone Bitart 1 tab Q4HP PRN PO 08/27/24 17:45 Ondansetron HCl 4 mg Q4HP PRN IV 08/27/24 17:45 Docusate Sodium 100 mg BIDPRN PRN PO 08/27/24 17:45 Acetaminophen 650 mg Q6HP PRN PO 08/27/24 17:45 Nitroglycerin 0.4 mg Q5MINP PRN SL 08/27/24 17:45 Morphine Sulfate 2 mg Q30M PRN IV 08/27/24 17:45 Bumetanide 1 mg DAILY PO 08/28/24 10:00 08/29/24 10:00 1 MG Chlorthalidone 25 mg DAILY PO 08/28/24 10:00 08/29/24 10:00 25 MG Flecainide Acetate 50 mg DAILY PO 08/28/24 10:00 08/30/24 10:04 50 MG Nifedipine 30 mg DAILY PO 08/28/24 10:00 08/29/24 10:00 30 MG Docusate Sodium 100 mg BID PO 08/27/24 22:00 08/30/24 21:30 100 MG Folic Acid 1 mg DAILY PO 08/28/24 10:00 08/30/24 10:05 1 MG Losartan Potassium 100 mg DAILY PO 08/28/24 10:00 08/29/24 10:00 100 MG Atorvastatin Calcium 20 mg HS PO 08/27/24 22:00 08/30/24 21:30 20 MG Ceftriaxone Sodium 50 ml @ 100 mls/hr DAILY@09 IV 08/27/24 18:04 08/30/24 10:04 100 MLS/HR Aspirin 81 mg DAILY PO 08/28/24 10:00 08/30/24 10:04 81 MG Gabapentin 300 mg Q8H PO 08/28/24 10:00 08/30/24 17:28 300 MG Baclofen 10 mg Q8H PO 08/28/24 10:00 08/30/24 02:17 10 MG Calcium/Vitamin D 1 tab TID PO 08/28/24 14:00 08/30/24 21:30 1 TAB Metoprolol Tartrate 25 mg TID PO 08/28/24 14:00 08/29/24 21:59 25 MG Doxycycline Monohydrate 100 mg Q12HR PO 08/28/24 22:00 08/30/24 21:30 100 MG Albuterol 2.5 mg Q6HWA [facility] 08/29/24 06:00 08/30/24 18:52 2.5 MG Ipratropium [place] 0.5 mg Q6HWA [facility] 08/29/24 06:00 08/30/24 18:51 0.5 MG Oseltamivir Phosphate 75 mg Q12HR PO 08/29/24 22:00 09/03/24 21:59 08/30/24 21:30 75 MG Physical Exam: General:?NAD. Somewhat confused and disoriented. Neck:?Supple. No masses. HEENT:?PERRL. Normal lids and conjunctiva. Moist mucous membranes. Oropharynx with mild erythema; no lesions or exudates. Normal appearance of the external nose and ears. Heart:?Tachycardic, regular rhythm. No murmur. No lower extremity edema. Lungs:?Increased respiratory effort. Clear to auscultation bilaterally. No wheezes. No crackles. Abdomen:?Soft. Non-tender. Non-distended. No masses or abdominal hernia. Musculoskeletal:?No digital cyanosis. Normal strength and tone in all 4 limbs. Skin:?Warm and dry; no rashes. Neuro:?Alert but somewhat confused and disoriented. No facial droop or slurred speech. Extraocular movements intact. Sensation intact to soft touch in all 4 limbs. Psych:?Appropriate mood. Full affect. Oriented to person but disoriented to place and time. laboratory and microbiology Laboratory Tests 08/30/24 08:06 08/29/24 06:03 Test 08/30/24 08:06 Range/Units Serum Glucose 94 74-106 mg/dL Problem List/Assessment/Plan Problems(with codes): (1) Altered mental status (2) HIV (human immunodeficiency virus infection) (3) Influenza A (4) Urinary tract infection (5) Insect bite (6) Esophageal candidiasis (7) Acute on chronic diastolic heart failure (8) Acute coronary syndrome (9) Cellulitis of left forearm (10) Bilateral pulmonary infiltrates on chest x-ray Problem List/Assessment/Plan ID Problem List: - Shortness of breath - Tachycardia - Confusion - Viral pneumonia (Influenza positive) - HIV infection (controlled) - Hypertension - Hyperlipidemia - Arthritis - Chronic back pain COPD - Stroke - Cancer (unspecified type) - Allergy to iodine Assessment This is a 63-year-old male with a past medical history of hypertension, hyperlipidemia, arthritis, chronic back pain, COPD, stroke, cancer (type unspecified), and controlled HIV infection (CD4 count 810) on Triumeq, who presents with worsening shortness of breath over the last week. He reports chills and a sore throat; everyone at home has been sick recently. He was seen by his knitter mechanic, who noted an elevated heart rate and advised further evaluation. He denies starting any new medications or antibiotics. On admission, he is febrile (99.2?F), tachycardic (HR 120 bpm), hypotensive (BP 104/52 mmHg), somewhat confused, and disoriented, with dyspnea on exertion. Laboratory studies are notable for a positive influenza test and stable troponins at 15, 17, and 18. Chest X-ray shows no acute cardiopulmonary disease. 08/29: Patients HIV is well controlled , confirmed by [facility] labs by Dr Michel in august 22 : no fevers or ongoing signs of bronchitis , chest xray shows no acute cardiopulmonary disease or cardiomegaly Plan: - Have patient follow up with Dr Michel in 2 weeks after discharge - Viral pneumonia (Influenza positive): - Continue doxycycline and ceftriaxone for community-acquired pneumonia coverage. - Initiate Tamiflu 75mg PO BID for 5 days. - Hold Triumeq during Tamiflu therapy to avoid drug interactions. - Resume Triumeq after completion of Tamiflu course. - Screen for hepatitis B to assess for any impact on HIV regimen. - Obtain sputum culture and procalcitonin level. - Altered mental status: - Monitor mental status closely. - Evaluate for potential causes (e.g., hypoxia, infection, medication effects). - Tachycardia: - Defer further evaluation to cardiology team. - Monitor vital signs regularly. COPD: - Continue supplemental oxygen at 2?L/min via nasal cannula. - Monitor oxygen saturation. - Smoking cessation: - Provide counseling on quitting smoking. - Allergy: - Document allergy to iodine; avoid iodine-containing medications and contrast agents. Plan discussed with: NAHED Mendez MD Aug 30, 2024 23:15
[2024-08-31] VITALS (9 sets, daily range): BP systolic 106–116; BP diastolic 58–76; PULSE 53–99; RESP 16; TEMP 36.6; O2SAT 91–100
--- NOTE | 2024-08-31 11:22 | DVHPN2 ---
Progress Note - Dictate Date Seen: Aug 31, 2024 Medical Necessity Reason Pt with a Central, PICC or Fol: No vital signs Vital Sign Date Time Temp Pulse Resp B/P (MAP) Pulse Ox O2 Delivery O2 Flow Rate FiO2 08/31/24 09:39 114/76 08/31/24 09:00 97.9 80 16 94 97.9 08/31/24 07:15 Room Air* 0 21 Total Intake and Output 08/30/24 08/30/24 08/31/24 15:00 23:00 07:00 Intake Total 50 ml 725 ml 500 ml Output Total 1200 ml 100 ml Balance 50 ml -475 ml 400 ml medications Current Medications Medications Dose Ordered Sig/Jet Route Start Time Stop Time Status Last Admin Dose Admin Sodium Chloride 10 ml Q8HR IV 08/27/24 22:00 08/31/24 06:24 10 ML Acetaminophen/ Hydrocodone Bitart 1 tab Q4HP PRN PO 08/27/24 17:45 Ondansetron HCl 4 mg Q4HP PRN IV 08/27/24 17:45 Docusate Sodium 100 mg BIDPRN PRN PO 08/27/24 17:45 Acetaminophen 650 mg Q6HP PRN PO 08/27/24 17:45 Nitroglycerin 0.4 mg Q5MINP PRN SL 08/27/24 17:45 Morphine Sulfate 2 mg Q30M PRN IV 08/27/24 17:45 Bumetanide 1 mg DAILY PO 08/28/24 10:00 08/31/24 09:37 1 MG Chlorthalidone 25 mg DAILY PO 08/28/24 10:00 08/31/24 09:37 25 MG Flecainide Acetate 50 mg DAILY PO 08/28/24 10:00 08/31/24 09:40 50 MG Nifedipine 30 mg DAILY PO 08/28/24 10:00 08/31/24 09:39 30 MG Docusate Sodium 100 mg BID PO 08/27/24 22:00 08/30/24 21:30 100 MG Folic Acid 1 mg DAILY PO 08/28/24 10:00 08/31/24 09:35 1 MG Losartan Potassium 100 mg DAILY PO 08/28/24 10:00 08/31/24 09:36 100 MG Atorvastatin Calcium 20 mg HS PO 08/27/24 22:00 08/30/24 21:30 20 MG Ceftriaxone Sodium 50 ml @ 100 mls/hr DAILY@09 IV 08/27/24 18:04 08/31/24 09:34 100 MLS/HR Aspirin 81 mg DAILY PO 08/28/24 10:00 08/31/24 09:40 81 MG Gabapentin 300 mg Q8H PO 08/28/24 10:00 08/31/24 09:35 300 MG Baclofen 10 mg Q8H PO 08/28/24 10:00 08/31/24 09:39 10 MG Calcium/Vitamin D 1 tab TID PO 08/28/24 14:00 08/31/24 06:22 1 TAB Metoprolol Tartrate 25 mg TID PO 08/28/24 14:00 08/31/24 06:22 25 MG Doxycycline Monohydrate 100 mg Q12HR PO 08/28/24 22:00 08/31/24 09:38 100 MG Albuterol 2.5 mg Q6HWA [facility] 08/29/24 06:00 08/31/24 07:15 2.5 MG Ipratropium [place] 0.5 mg Q6HWA [facility] 08/29/24 06:00 08/31/24 07:15 0.5 MG Oseltamivir Phosphate 75 mg Q12HR PO 08/29/24 22:00 09/03/24 21:59 08/31/24 09:35 75 MG laboratory and microbiology Laboratory Tests 08/29/24 06:03 Test 08/31/24 10:52 Range/Units Serum Glucose Pending Assessment/Plan Patient is 73 year old male who presented with few days of shortness of breath accompanied with chills, sore throat and palpitations. Reportedly all the family are sick. He also was experiencing more than usual palpitations. Cardiology is involved for cardiac aspects of care. Patient is known to or practice from outside. He recently was fond to have frequent SVT and was prescribed Flecainide for it. His PMH includes controlled HIV. Denies LOC. Denies dizziness. Denies chest pain. NAD, lying in bed flat. Is short of breath and is on nasal canula O2 therapy. Mucosa is wet and pink. no Carotid bruit. No cervical lymphadenopathy. No goiter. Not using accessory muscles of breathing. Healed mid sternal scar is seen. Scattered rhonchi in lungs is heard. Cardiac: RR, tachycardia is present. Systolic murmur, 2 out of 6 in apex. Abdomen is soft, no gross mass, no gross hepatomegaly. Ext: no edema. DP is 2+ bilateral PMH includes: COD, old CVA, hypertension, hyperlipidemia, old prostate cancer, DJD, LBP, DDD (lumbar spine), Morbid obesity, History of HIV (goes to [facility] for its management) and history of hernia repair. Has history of heart surgery to remove a benign mass (?) years ago. Denies CABG. Has been recently diagnosed with frequent SVT and was started on Flecainide. Smokes cigarette. Occasionally uses Marijuana. Drinks alcohol regularly. Echo in ([facility]): reported LVH, EF of 60%, Dilated Aortic root, Left [place] enlargement and mild TR Echocardiogram of February/2024 (performed in office) revealed: borderline concentric left ventricular hypertrophy, LVEF of 60 to 65%, normal diastole, Mild to moderate TR and RVSP of 28 mmHg Nuclear stress test of (performed in office): normal perfusion and EF of 63% WBC: 7.5 - 7.1 - 5.3 Hgb: 13.8 - 13.2 - 14.4 Creat: 1.13 - 1.15 - 1.01 - 1.19 K: 3.3 - 3.0 - 3.5 - 3.2 Trop (high sensitive): 15 - 17 -18 BNP: 63.95 Influenza type A: Positive Chest xry reported: FINDINGS: Lines and Tubes: None Lungs: No focal consolidation. Pleura: No effusion. No pneumothorax. Cardiomediastinal contours:Within normal limits. Midline sternotomy wires. Pulmonary vasculature: Within normal limits. Bones: No acute osseous abnormality. IMPRESSION: 1. No acute cardiopulmonary disease. Repeat chest xry revealed: IMPRESSION: 1. No acute cardiopulmonary disease. 2. Mild cardiomegaly. EKG revealed sinus tachycardia, LVH and no ST T changes. Tele reveals sinus tachycardia Echocardiogram reported: Left ventricle: Left ventricle was normal-sized with normal systolic function. There was no gross wall motion abnormality. LVEF of 61%. Right ventricle was normal-sized with normal systolic function. Both atria were normal-sized. Aortic valve was not well visualized. There was no aortic insufficiency/stenosis. There was trivial mitral/tricuspid regurgitation. Pulmonary valve was not well visualized. As there was no good tricuspid regurgitation jet, right ventricular systolic pressure could not be estimated. There was no echocardiographic evidence for pulmonary hypertension. There was no pericardial effusion. Patient is 63 year old male who presented with fever, shortness of breath, chills, sore throat. He is found to have Influenzae. Does have sepsis. Findings question flu related Bronchitis and sepsis. Tachycardia at this point is assessed to be secondary to sepsis. Recognizing history of HIV, patient is considered immunocompromised. Acute coronary syndrome is not considered. ID is on the case. Influenza Bronchitis Viral pneumonia Acute respiratory failure Sepsis History of HIV COPD exacerbation Hypertension hyperlipidemia DDD Morbid Obesity SVT, history of Cardiac suggestion for management: Manage on Tele Follow up electrolytes and kidney function test and correct abnormalities. Keep potassium above 4 and Magnesium above 2 Metoprolol Tartrate at 25 mg PO TID Management of Flu/sepsis/Bronchitis as per primary team/pulmonary/ID Tamiflu as per ID Further evaluation and management depends on the above and clinical course Cardiac fr[place], can be followed as outpatient A total of 55 minutes was spent reviewing the patient record, examining the patient, making a diagnostic and therapeutic plan, discussing this plan with medical personnel, following up on diagnostic studies and following the patient for clinical stability excluding any and all procedures. At least 50% of this time was spent in direct, [id number] contact. Thank you for allowing me to participate in this patient's care. Further recommendations will depend on patient's clinical course. Please do not hesitate to contact me if you have any questions or concerns. This medical document was created using electronic medical record system with [employer] computerized dictation system. Although this document has been carefully reviewed, there may still be some phonetic and typographical errors. These areas are purely typographical due to the imperfection of the software programs, and do not reflect any compromise in the patient's medical care. Plan discussed with: Patient, Other (nurse) JONATHON MENDOZA MD Aug 31, 2024 11:22
[2024-08-31 11:26] LABS: Chloride 105 mmol/L (98-107); Potassium 3.7 mmol/L (3.5-5.1); Sodium 136 mmol/L (136-145)
[2024-08-31 11:27] LABS: Anion Gap 7 (5-15); Carbon Dioxide 24 mmol/L (20-31)
[2024-08-31 11:32] LABS: BUN/Creatinine Ratio 16.5 (10.0-20.0); Blood Urea Nitrogen 19 mg/dL (9-23)
[2024-08-31 11:35] LABS: Glucose 130 mg/dL (74-106)
[2024-08-31] MEDS ORDERED: DOX100T PO (11:38)
[2024-08-31] MEDS ORDERED: ALBUAER3 IN (11:38)
--- NOTE | 2024-08-31 11:40 | DVHDS2 ---
Discharge Summary Date of Admission Aug 27, 2024 at 17:37 Date of Discharge: Aug 31, 2024 Admitting Diagnosis Acute respiratory failure Labs/Diagnostic Data: Laboratory Results Test 08/31/24 10:52 08/30/24 15:47 08/30/24 08:06 08/29/24 20:55 Sodium Level 136 mmol/L (136-145) Potassium Level 3.7 mmol/L (3.5-5.1) Chloride Level 105 mmol/L (98-107) Carbon Dioxide Level 24 mmol/L (20-31) Anion Gap 7 (5-15) Blood Urea Nitrogen 19 mg/dL (9-23) Creatinine 1.15 mg/dL (0.700-1.30) Glomerular Filtration Rate Calc 71 mL/min (>90) BUN/Creatinine Ratio 16.5 (10.0-20.0) Serum Glucose 130 mg/dL (74-106) Calcium Level 10.0 mg/dL (8.7-10.4) Magnesium Level 2.0 mg/dL (1.6-2.6) Blood Gas Specimen Type Arterial Blood Gas Sample Site Left radial Blood Gas Patient Temperature 37.0 Arterial Blood Date Drawn [id number] Arterial Blood pH 7.454 (7.350-7.450) Arterial Blood Partial Pressure CO2 37.0 mmHg (35.0-48.0) Arterial Blood Partial Pressure O2 62.7 mmHg (83.0-108.0) Arterial Blood HCO3 25.4 mmol/L (21.0-28.0) Arterial Blood Oxygen Saturation 91.9 % (94.0-98.0) Arterial Blood Base Excess 1.7 mmol/L (-2.0-3.0) Arterial Blood Oxyhemoglobin 91.2 % (94.0-98.0) Arterial Blood Carboxyhemoglobin 0.3 % (0.5-1.5) Arterial Blood Methemoglobin 0.5 % (0.0-1.5) [place] Test Yes Blood Gas Total Hemoglobin 14.40 g/dL (13.5-17.5) Blood Gas Modality Room air FiO2 % 21.0 B-Type Natriuretic Peptide 8.73 pg/mL (0-100) Test 08/29/24 06:03 08/28/24 13:30 08/28/24 04:20 08/28/24 00:26 White Blood Count 5.3 10^3/uL (4.4-10.8) Red Blood Count 4.47 10^6/uL (4.5-5.90) Hemoglobin 14.4 g/dL (13.5-17.5) Hematocrit 41.8 % (41.0-53.0) Mean Corpuscular Volume 93.7 fL (80.0-100.0) Mean Corpuscular Hemoglobin 32.2 pg (28.0-32.0) Mean Corpuscular Hemoglobin Concent 34.4 g/dL (32.0-36.0) Red Cell Distribution Width 13.8 % (11.8-14.3) Platelet Count 131 10^3/uL (140-450) Mean Platelet Volume 12.1 fL (6.9-10.8) Neutrophils (%) (Auto) 53.1 % (37.0-80.0) Lymphocytes (%) (Auto) 31.8 % (10.0-50.0) Monocytes (%) (Auto) 13.5 % (0.0-12.0) Eosinophils (%) (Auto) 0.9 % (0.0-7.0) Basophils (%) (Auto) 0.7 % (0.0-2.0) Neutrophils # (Auto) 2.8 10 ^3/uL (1.6-8.6) Lymphocytes # (Auto) 1.7 10 ^3/uL (0.4-5.4) Monocytes # (Auto) 0.7 10 ^3/uL (0-1.3) Eosinophils # (Auto) 0 10 ^3/uL (0-0.8) Basophils # (Auto) 0 10 ^3/uL (0-0.2) Nucleated Red Blood Cells 0.2 % Platelet Estimate Decreased Large Platelets Few Giant Platelets Few Urine Color Yellow (Yellow) Urine Clarity Clear (Clear) Urine pH 6.0 (5.0-9.0) Urine Specific [place] 1.026 (1.001-1.035) Urine Protein 2+ (Negative) Urine Ketones Trace (Negative) Urine Blood 1+ /uL (Negative) Urine Nitrite Negative (Negative) Urine Bilirubin Negative (Negative) Urine Urobilinogen Normal mg/dL (Negative) Urine Leukocyte Esterase Negative /uL (Negative) Urine RBC 7 /hpf (0 - 3) Urine WBC 2 /hpf (0 - 3) Urine Squamous Epithelial Cells Few /hpf (<5) Urine Bacteria None seen /hpf (None Seen) Urine Mucus Few (None Seen) Urine Glucose Normal mg/dL (Normal) Differential Total Cells Counted 100.0 (100) Neutrophils % (Manual) 69 (37.0-80.0) Band Neutrophils % (Manual) 0 Lymphocytes % (Manual) 17 (10.0-50.0) Monocytes % (Manual) 13 (0-12) Eosinophils % (Manual) 0 (0-7) Basophils % (Manual) 1 (0.0-2.0) Metamyelocytes % (manual) 0 Myelocytes % (Manual) 0 Promyelocytes % (Manual) 0 Blast Cells % (Manual) 0 Reactive Lymphocytes 0 Total Bilirubin 0.6 mg/dL (0.2-1.0) Aspartate Amino Transferase (AST) 39 U/L (13-40) Alanine Aminotransferase (ALT) 22 U/L (7-40) Alkaline Phosphatase 69 U/L (46-116) Total Protein 7.1 g/dL (5.7-8.2) Albumin 4.1 g/dL (3.2-4.8) Influenza Type A Antigen Positive (Negative) Influenza Type B Antigen Negative (Negative) SARS-CoV-2 Antigen (Rapid) Negative (NEGATIVE) Test 08/27/24 18:30 Troponin I High Sensitivity 18 ng/L (</=54) Other Laboratory Tests 08/31/24 10:52 08/29/24 06:03 Brief Hx & Hospital Course: This is a 63-year-old male with a past medical history of hypertension, hyperlipidemia, arthritis, chronic back pain, COPD, stroke, cancer (type unspecified), and controlled HIV infection (CD4 count 810) on Triume[place], who presents with worsening shortness of breath over the last week. He reported chills and a sore throat; everyone at home has been sick recently. He was seen by his bid clerk, who noted an elevated heart rate and advised further evaluation. He denies starting any new medications or antibiotics. On admission, he is febrile (99.2?F), tachycardic (HR 120 bpm), hypotensive (BP 104/52 mmHg), somewhat confused, and disoriented, with dyspnea on exertion. Laboratory studies are notable for a positive influenza test and stable troponins at 15, 17, and 18. Patient was short of breath, requiring 3liters of nasal cannula oxygen. Patient was treated with TamiFlu and Doxycycline. Will be discharged home, no longer requiring oxygen. Patient needs to have a BMP done to monitor potassium levels with PCP. Condition at Discharge: Stable Final Diagnosis/Problems List Influenza with Bronchitis-Doxy Acute respiratory failure- Titrate as tolerated HIV- Cont ARVT COPD exacerbation - bronchodilators Hypertension- Cont meds hyperlipidemia DDD Morbid Obesity SVT, history of - Cont meds. Cx Dr. Newman. Discharge Disposition: Home Discharge Statement: "Patient was advised to return to the ER or call 911 if any headaches, dizziness, shortness of breath, chest pain, abdominal pain, bleeding, fevers, or worsening of medical condition. Patient was counseled about treatment plan, medications, possible side effects, patientverbalized understanding. All questions were answered to the best of my ability. This discharge took greater then 30 minutes in planning, reviewing documentation, counseling the patient, and discussing with other team members." ASSESSMENT ASSESSMENT Assessment Date of Service: Aug 31, 2024 Billing Provider: DAISHA LIRIANO MD Common Visit Codes: 50194-DIU/OBS DISCH DAY >30min DAISHA LIRIANO MD Aug 31, 2024 11:40
[2024-09-02 08:52] LABS: Hepatitis B Surface Antibody Negative (Negative); Hepatitis B Surface Antigen Negative (Negative)
[2024-09-02 09:25] LABS: Hepatitis B Core IgM Negative (Negative)
== END 2024-08-31 13:27 | disposition home or self-care (01) | DRG 871 ==
LOC: ER 12:57 → TELE 17:37 → TELE-WESTW 08-28 14:04 → WEST WING 08-30 21:38 → TELE-WESTW 08-30 23:22
PROVIDERS: ADMIT Nurse Practitioner Family; ATTEND Internal Medicine
DX: A41.9 Sepsis, unspecified organism (principal); J10.08 Influenza due to other identified influenza virus with other specified pneumonia; J12.9 Viral pneumonia, unspecified; J96.01 Acute respiratory failure with hypoxia; I24.9 Acute ischemic heart disease, unspecified; J44.1 Chronic obstructive pulmonary disease with (acute) exacerbation; L03.114 Cellulitis of left upper limb; B37.81 Candidal esophagitis; N39.0 Urinary tract infection, site not specified; J44.0 Chronic obstructive pulmonary disease with (acute) lower respiratory infection; Z20.822 Contact with and (suspected) exposure to COVID-19; E78.5 Hyperlipidemia, unspecified; G89.29 Other chronic pain; J20.8 Acute bronchitis due to other specified organisms; F17.210 Nicotine dependence, cigarettes, uncomplicated; E66.01 Morbid (severe) obesity due to excess calories; I11.0 Hypertensive heart disease with heart failure; J10.1 Influenza due to other identified influenza virus with other respiratory manifestations; Z95.1 Presence of aortocoronary bypass graft; Z68.31 Body mass index [BMI] 31.0-31.9, adult; Z86.73 Personal history of transient ischemic attack (TIA), and cerebral infarction without residual deficits; Z83.3 Family history of diabetes mellitus; Z91.041 Radiographic dye allergy status; Z85.46 Personal history of malignant neoplasm of prostate; Z79.899 Other long term (current) drug therapy
CPT/HCPCS: 36415; 36600; 71046; 80048; 80053; 81001; 82805; 83735; 83880; 84484; 85007; 85025; 85027; 86705; 86706; 87086; 87340; 87426; 87804; 93005; 93306; 94640; 99291; G0378

== ENCOUNTER → 2025-01-17 | Day surgery (SDC) | payer OTHER, MEDICAID ==
[2025-01-15 12:10] LABS: Basophils # (auto) 0.1 10 ^3/uL (0-0.2); Basophils % (auto) 0.8 % (0.0-2.0); Eosinophils # (auto) 0.2 10 ^3/uL (0-0.8); Eosinophils % (auto) 2.6 % (0.0-7.0); Hematocrit 41.5 % (41.0-53.0); Hemoglobin 14.3 g/dL (13.5-17.5); Lymphocytes # (auto) 3.2 10 ^3/uL (0.4-5.4); Lymphocytes % (auto) 34.7 % (10.0-50.0); Mean Corpuscular Hemoglobin 32.8 pg (28.0-32.0); Mean Corpuscular Hgb Conc. 34.5 g/dL (32.0-36.0); Mean Corpuscular Volume 95.1 fL (80.0-100.0); Monocytes # (auto) 0.8 10 ^3/uL (0-1.3); Neutrophils # (auto) 4.9 10 ^3/uL (1.6-8.6); Neutrophils % (auto) 52.9 % (37.0-80.0); Nucleated Red Blood Cells % 0.2 %; Platelet Count (auto) 146 10^3/uL (140-450); Red Blood Cells 4.36 10^6/uL (4.5-5.90); White Blood Cell 9.3 10^3/uL (4.4-10.8)
[2025-01-15 12:18] LABS: INR 1.03 (0.9-1.15); Partial Thromboplastin Time 27.3 SEC (24.5-34.5); Prothrombin Time 10.9 sec (9.3-11.8)
[2025-01-15 12:42] LABS: Alanine Aminotransferase 20 U/L (7-40); Albumin 4.5 g/dL (3.2-4.8); Alkaline Phosphatase 85 U/L (46-116); Anion Gap 8 (5-15); Aspartate Aminotransferase 20 U/L (13-40); BUN/Creatinine Ratio 8.4 (10.0-20.0); Bilirubin, Total 0.4 mg/dL (0.2-1.0); Blood Urea Nitrogen 10 mg/dL (9-23); Calcium 10.3 mg/dL (8.7-10.4); Carbon Dioxide 29 mmol/L (20-31); Chloride 109 mmol/L (98-107); Glucose 121 mg/dL (74-106); Potassium 3.9 mmol/L (3.5-5.1); Sodium 146 mmol/L (136-145); Total Protein 7.4 g/dL (5.7-8.2)
[~2025-01-17] VITALS: Ht 185.4 cm; Wt 112.9 kg
[~2025-01-17] MED LIST changes: -ACET500T58 PO; +ALBUAER3 IN; -ATOR10TA52 PO; +ATOR20TA50 PO; +FLEC1TAB PO; -FLUC200T50 PO; -LEVO750T8 PO; +MIDAZOLAM HCL 5 MG/ML-1ML VIAL ONE; +PROPOFOL 10 MG/ML 20 ML IV ONE; +SODIUM CHLORIDE LOCK 0 ML ONE; -ZOFR4T PO; +diphenhdrAMINE HCL 50 MG/1 ML VL ONE; +fentaNYL CITRATE 100 MCG/2 ML VL ONE
[2025-01-17 13:54] VITALS: PULSE 69; RESP 16; TEMP 97; O2SAT 94
--- NOTE | 2025-01-17 14:04 | DVHOP2 ---
Operative Report DATE OF OPERATION: 01/17/25 PROCEDURE: Colonoscopy with cold biopsy polypectomy. PREOPERATIVE INDICATION: The patient is a 64 -year-old HIV-positive male undergoing colonoscopy for surveillance with personal history of colon polyps and colon cancer POSTOPERATIVE DIAGNOSES: 1. Patient had multiple 8-10 small 2-3 mm polyp seen in the colon that were removed either by cold biopsy forceps or by cold snare polypectomy 2. Trace to 1+ internal hemorrhoids otherwise completely normal colonoscopy examination up to the cecum PROCEDURE PERFORMED BY: Claire Albarran M.D. SCOPE: Olympus videocolonoscope. ASA CLASS: 3. PREOPERATIVE MEDICATIONS: Dr. Jeannette Victoria PROCEDURE IN DETAIL: After obtaining an informed consent, the patient was placed on left lateral decubitus position. He was then sedated with the above medications. A rectal examination was performed that was normal. The colonoscope was then passed through the anus into the rectosigmoid and through the descending, transverse, and ascending colon up to the cecum with visualization of the appendiceal orifice, base of the cecum and the ileocecal valve. The colonoscope was then withdrawn. No masses or colitis were noted. There was no clear-cut diverticular disease. Patient had two less than 5 mm benign-appearing ascending colon polyps were seen and removed by cold biopsy forceps Patient had two less than 5 mm benign-appearing transverse colon polyps that were seen and removed by cold biopsy forceps and one by snare polypectomy There were three less than 5 mm benign-appearing descending colon polyps one were removed by cold snare polypectomy and the other by cold biopsy forceps In the sigmoid there were two less than 5 mm benign-appearing sigmoid polyps were seen and removed by cold biopsy forceps On retroflexion and straight on view the patient had 1+ internal hemorrhoids The patient tolerated the procedure well without difficulty. WITHDRAWAL TIME: 9 minutes QUALITY OF THE PREP: Call Bowel Prep score: 9. COMPLICATIONS : None SPECIMENS: Ascending colon polyps Transverse colon polyps Descending colon polyps Sigmoid polyps DISPOSITION: Status D/C to home PLAN: 1. Repeat colonoscopy base on biopsy result likely in 2-3 years 2. Resume GI soft diet advance as tolerated 3. Local anorectal hemorrhoidal care; hold aspirin and blood thinners for 5-7 days 4. Outpatient follow up with me in 4-6 weeks to review results and discuss further management CLAIRE ALBARRAN MD January 17, 2025 14:04
[2025-01-17 14:09] VITALS: PULSE 69; RESP 20; O2SAT 97
[2025-01-17 14:39] VITALS: BP 124/76; PULSE 57; RESP 20; O2SAT 94
== END | disposition home or self-care (01) ==
LOC: GI 10:34
PROVIDERS: ATTEND Internal Medicine Gastroenterology
DX: Z12.11 Encounter for screening for malignant neoplasm of colon (principal); D12.2 Benign neoplasm of ascending colon; D12.3 Benign neoplasm of transverse colon; K63.5 Polyp of colon; J44.9 Chronic obstructive pulmonary disease, unspecified; E66.9 Obesity, unspecified; Z68.32 Body mass index [BMI] 32.0-32.9, adult; Z21 Asymptomatic human immunodeficiency virus [HIV] infection status; Z79.899 Other long term (current) drug therapy; Z85.038 Personal history of other malignant neoplasm of large intestine; Z86.0100 Personal history of colon polyps, unspecified; Z95.1 Presence of aortocoronary bypass graft; Z88.8 Allergy status to other drugs, medicaments and biological substances
CPT/HCPCS: 36415; 45380; 45385; 80053; 85025; 85610; 85730; 88305; J2704; J3010; J7030; J2250